=== PATIENT | male | born 1950 | race Caucasian/White ===

== ENCOUNTER → 2016-08-31 | Outpatient (CLI) | payer OTHER ==
[2015-11-03 14:10] VITALS: BP 121/69
[~2016-08-31] MED LIST: ARIP2TAB PO; ASPI-482 PO; BUPR100T6 PO; GABA-585 PO; HYDR-2762 PO; LAMO25TA PO; LITH300C PO; OMEG500C PO; PROM25TA10 PO; TAMS0.4C97 PO
== END | disposition home or self-care (01) ==
LOC: SPEC 10:00
PROVIDERS: ATTEND Internal Medicine
DX: R31.9 Hematuria, unspecified (principal); N40.1 Benign prostatic hyperplasia with lower urinary tract symptoms
CPT/HCPCS: 88112

== ENCOUNTER → 2016-09-08 | Outpatient (CLI) | payer OTHER ==
[2015-11-03 14:10] VITALS: BP 121/69
== END | disposition home or self-care (01) ==
LOC: SPEC 15:33
PROVIDERS: ATTEND Internal Medicine
DX: R31.9 Hematuria, unspecified (principal); N40.1 Benign prostatic hyperplasia with lower urinary tract symptoms
CPT/HCPCS: 88112

== ENCOUNTER → 2016-09-28 | Outpatient (CLI) | payer OTHER ==
[2015-11-03 14:10] VITALS: BP 121/69
--- NOTE | 2016-10-07 15:29 | PATHOLOGY ---
CYTOPATHOLOGY REPORT CLINICAL HISTORY: Hematuria. SPECIMEN(S) RECEIVED: A.Urine, NOS FINAL DIAGNOSIS: Urine, NOS: - POSITIVE FOR MALIGNANCY. SEE COMMENT. COMMENT: There are highly atypical cells identified within a background of red blood cells. FISH analysis is performed. Aneuploidy involving at least two of the following chromosomes: 3, 7, 17 (cen3, cen7, cen17) is observed (79 cells positive, 84.0%). This finding is associated with development and progression of urothelial carcinoma and generally correlates with high-grade tumor (see FISH Analysis report [id number]). The case is also examined by Dr. Jovanna Gibson, who concurs with the diagnosis. (JPM:; d/t: 10/07/16) PATHOLOGIST: Prieto Nicole M.D. REPORT ELECTRONICALLY SIGNED BY: Prieto Nicole M.D. DATE/TIME: 10/07/2016 15:28 GROSS PATHOLOGY: A. Urine, NOS: The specimen is submitted unfixed, labeled "Prashant Stevenson". Received by the Cytology Department is 30 mL of clear yellow fluid. One ThinPrep slide was prepared. Specimen sent for FISH by Amanda at [facility] (clt 3) LICENSED MORTICIAN(S): VENUS Walters(ASCP) INITIAL CPT CODE(S): A; 57452 Professional services performed by [facility] at [address] [address] Technical services performed by [facility] at [address] [place] [address], [address], [place] [address]. Dr. Lucero Black PATIENT: PRASHANT STEVENSON /AGE: 8 1950 (Age: 66) SEX: M PATIENT #: [id number] ALT CASE #: SPECIMEN COLLECTION DATE: 09/27/2016 SPECIMEN RECEIVED DATE: 09/30/[address] [facility] [address] [place] [address], [address] [place] [address] PHONE: [phone] DIRECTOR: Ken Frankel M.D. * * * END OF REPORT * * *
== END | disposition home or self-care (01) ==
LOC: SPEC 15:37
PROVIDERS: ATTEND Family Medicine
DX: R31.9 Hematuria, unspecified (principal)
CPT/HCPCS: 88112

== ENCOUNTER 2017-07-26 16:09 | Emergency (ER) | payer OTHER ==
[2017-07-26] MEDS: ACETAMINOPHEN 500 MG TABLET PO (17:58)
== END 2017-07-26 18:00 | disposition home or self-care (01) ==
LOC: ER 16:09
DX: S16.1XXA Strain of muscle, fascia and tendon at neck level, initial encounter (principal); S00.81XA Abrasion of other part of head, initial encounter; S80.212A Abrasion, left knee, initial encounter; F32.9 Major depressive disorder, single episode, unspecified; Z90.49 Acquired absence of other specified parts of digestive tract; W22.8XXA Striking against or struck by other objects, initial encounter; Y93.01 Activity, walking, marching and hiking; Y92.481 Parking lot as the place of occurrence of the external cause; Y99.8 Other external cause status
CPT/HCPCS: 99283

== ENCOUNTER → 2017-12-11 | Outpatient (CLI) | payer OTHER, MEDICARE ==
[2017-12-11 09:49] LABS: ADD MAN DIFF? NO
[2017-12-11 09:58] LABS: BASO # 0.1 x10^3/uL (0.0-0.2); BASO % 1 % (0-3); EOS # 0.3 x10^3/uL (0.0-0.7); EOS % 3 % (0-3); HEMATOCRIT 46.8 % (39.0-53.0); HEMOGLOBIN 15.8 g/dL (13.0-17.5); LYMPH # 2.1 x10^3/uL (1.0-4.8); LYMPH % 25 % (24-48); MEAN CORPUSCULAR HEMOGLOBIN 29 pg (25-35); MEAN CORPUSCULAR HGB CONC 34 g/dL (31-37); MEAN CORPUSCULAR VOLUME 86 fL (79-100); MONO # 0.7 x10^3/uL (0.0-1.1); MONO % 8 % (0-9); NEUT # 5.5 x10^3uL (1.8-7.7); NEUT % 63 % (31-73); PLATELET COUNT 265 x10^3/uL (140-400); RED BLOOD COUNT 5.45 x10^6/uL (4.30-5.70); RED CELL DISTRIBUTION WIDTH 14.6 % (11.5-14.5); WHITE BLOOD COUNT 8.7 x10^3/uL (4.0-11.0)
[2017-12-11 10:20] LABS: ALBUMIN 3.9 g/dL (3.4-5.0); ALBUMIN/GLOBULIN RATIO 1.1 (1.0-1.7); ALK PHOS 96 U/L (46-116); ALT (SGPT) 32 U/L (16-63); ANION GAP 7 (6-14); AST (SGOT) 15 U/L (15-37); BLOOD UREA NITROGEN 16 mg/dL (8-26); BUN/CREATININE RATIO 11 (6-20); CALCIUM 9.3 mg/dL (8.5-10.1); CARBON DIOXIDE 30 mmol/L (21-32); CHLORIDE 103 mmol/L (98-107); CHOLESTEROL 196 mg/dL (0-200); CREATININE 1.4 mg/dL (0.7-1.3); GFR 50.9; GLUCOSE 107 mg/dL (70-99); HDLC 45 mg/dL (40-60); LDLC 111 mg/dL (0-100); NON-HDL CHOLESTEROL 151 mg/dL (0-129); POTASSIUM 4.7 mmol/L (3.5-5.1); SODIUM 140 mmol/L (136-145); TOTAL BILIRUBIN 0.5 mg/dL (0.2-1.0); TOTAL PROTEIN 7.4 g/dL (6.4-8.2); TRIGLYCERIDES 200 mg/dL (0-150); VLDLC 40 mg/dL (0-40)
[2017-12-11 10:26] LABS: CHOLESTEROL/HDL RATIO 4.4
[2017-12-11 10:28] LABS: THYROID STIM HORMONE (TSH) 1.163 uIU/mL (0.358-3.74)
[2017-12-11 10:44] LABS: PROSTATE SPECIFIC ANTIGEN 1.79 ng/mL (0.00-4.00)
[2017-12-12 03:14] LABS: HEMOGLOBIN A1C 5.5 % (4.8-5.6)
== END | disposition home or self-care (01) ==
LOC: LAB 09:18
DX: Z12.5 Encounter for screening for malignant neoplasm of prostate (principal); N40.0 Benign prostatic hyperplasia without lower urinary tract symptoms; R79.89 Other specified abnormal findings of blood chemistry
CPT/HCPCS: 36415; 80053; 80061; 83036; 84443; 85025; G0103

== ENCOUNTER → 2018-04-03 | Outpatient (CLI) | payer MEDICARE, OTHER ==
[2017-07-26 17:20] VITALS: BP 154/70
[~2018-04-03] MED LIST changes: -ARIP2TAB PO; +ARIP2TAB3 PO; +CARI350T PO
[2018-04-03 08:06] LABS: CHOLESTEROL/HDL RATIO 3.7
[2018-04-03 16:31] LABS: ALBUMIN 3.7 g/dL (3.4-5.0); ALBUMIN/GLOBULIN RATIO 1.2 (1.0-1.7); CALCIUM 8.6 mg/dL (8.5-10.1); CREATININE 1.6 mg/dL (0.7-1.3); GFR 43.5; POTASSIUM 3.9 mmol/L (3.5-5.1); TOTAL BILIRUBIN 0.3 mg/dL (0.2-1.0); TOTAL PROTEIN 6.7 g/dL (6.4-8.2)
[2018-04-06 10:29] LABS: METHYLMALONIC ACID 187 nmol/L (0-378)
== END | disposition home or self-care (01) ==
LOC: LAB 07:22
PROVIDERS: ATTEND Internal Medicine
DX: E78.5 Hyperlipidemia, unspecified (principal); G31.84 Mild cognitive impairment of uncertain or unknown etiology; E11.9 Type 2 diabetes mellitus without complications; E78.00 Pure hypercholesterolemia, unspecified; Z87.891 Personal history of nicotine dependence; Z90.49 Acquired absence of other specified parts of digestive tract
CPT/HCPCS: 36415; 80053; 80061; 82550; 82607

== ENCOUNTER → 2019-03-28 | Outpatient (CLI) | payer OTHER ==
[2017-07-26 17:20] VITALS: BP 154/70
[~2019-03-28] MED LIST changes: -HYDR-2762 PO; +HYDR-2765 PO; -LAMO25TA PO; +LAMO25TA9 PO; +REGADENOSON 0.4 MG/5 ML DISP.SYRIN. IV ONE
--- NOTE | 2019-03-28 09:19 | CARD ---
MR#: [id number] Date of Study: 03/28/2019 Ordering Physician: JORDI ARAIZA, Referring Physician: JORDI ARAIZA Tech: Rosalva Mackey RDCS APPROVED REPORT EXAM: Two-dimensional and M-mode echocardiogram with Doppler and color Doppler. Other Information Quality : Good INDICATION Chest Pain 2D DIMENSIONS RVDd2.8 (2.9-3.5cm)Left Atrium(2D)3.2 (1.6-4.0cm) IVSd1.0 (0.7-1.1cm)Aortic Root(2D)2.7 (2.0-3.7cm) LVDd4.6 (3.9-5.9cm)LVOT Diameter2.1 (1.8-2.4cm) PWd0.8 (0.7-1.1cm)LVDs3.3 (2.5-4.0cm) FS (%) 29.0 %SV54.5 ml LVEF(%)55.8 (>50%) Aortic Valve AoV Peak Darvin.97.2cm/sAoV VTI17.1cm AO Peak GR.3.8mmHgLVOT Peak Darvin.98.9cm/s AO Mean GR.2mmHgAVA (VMAX)3.50cm2 COURTNEY (VTI)3.90cm2 Mitral Valve MV E Ijgarivq70.8cm/sMV DECEL YWOP349id MV A Deaczgbi60.7cm/sE/A Ratio0.9 Pulmonary Vein S1 Qkscbgrf45.5cm/sD2 Ayhmmwlu33.2cm/s LEFT VENTRICLE The left ventricle is normal size. There is normal left ventricular wall thickness. The left ventricu lar systolic function is normal and the ejection fraction is within normal range. The Ejection Fracti on is 55-60%. There is normal LV segmental wall motion. Transmitral Doppler flow pattern is Grade I-a bnormal relaxation pattern. RIGHT VENTRICLE The right ventricle is normal size. The right ventricular systolic function is normal. ATRIA The left atrium size is normal. The right atrium size is normal. The interatrial septum is intact wit h no evidence for an atrial septal defect or patent foramen ovale as noted on 2-D or Doppler imaging. AORTIC VALVE The aortic valve is calcified but opens well. Doppler and Color Flow revealed no significant aortic r egurgitation. There is no significant aortic valvular stenosis. MITRAL VALVE The mitral valve is calcified but opens well. Mitral annular calcification is mild. There is no evide nce of mitral valve prolapse. There is no mitral valve stenosis. Doppler and Color Flow revealed no m itral valve regurgitation noted. TRICUSPID VALVE The tricuspid valve is normal in structure and function. Doppler and Color Flow revealed no tricuspid valve regurgitation noted. There is no tricuspid valve stenosis. PULMONIC VALVE Doppler and Color Flow revealed trace to mild pulmonic valvular regurgitation. There is no pulmonic v alvular stenosis. GREAT VESSELS The aortic root is normal in size. The ascending aorta is normal in size. The IVC is normal in size a nd collapses >50% with inspiration. PERICARDIAL EFFUSION There is no evidence of significant pericardial effusion. Critical Notification Critical Value: No <Conclusion> The left ventricular systolic function is normal and the ejection fraction is within normal range. Th e Ejection Fraction is 55-60%. There is normal LV segmental wall motion. Signed by : Tong Sanches, Electronically Approved : 03/28/2019 09:19:09
--- NOTE | 2019-03-28 11:32 | RAD ---
MR#: [id number] Date of Study: 03/28/2019 Ordering Physician: JORDI ARAIZA Referring Physician: BRADFORD MCGRATH Tech: RT Giovanni Larson) (N) APPROVED REPORT Test Type: Pharmacological Stress Nurse/Tech: Rip SIMON Test Indications: Chest Pain, Near Syncope Cardiac History: See EMR Medications: ASA, See EMR Medical History: Smoker=Quit 2 months ago, See EMR Resting ECG: SR Resting Heart Rate: 69 bpm Resting Blood Pressure: 125/68mmHg Pretest Chest Pain: No chest pain Nurse/Tech Notes Lungs CTA, Heart tones regular. Consent: The procedure was explained to the patient in lay terms. Informed consent was witnessed. Toney eout was entered into [facility]. History and Stress Test performed by RT Giovanni Larson) (N) Pharm. Details Pharmacologic stress testing was performed using 0.4mg per 5ml of regadenoson given intravenously ove r 7-10 seconds. Stress Symptoms No chest pain or symptoms. POST EXERCISE Reason for Termination: Infusion complete Max HR: 97 bpm Max Blood Pressure: 134/54mmHg Blood Pressure response to exercise: Normal blood pressure response during stress. Heart Rate response to exercise: WNL Chest Pain: No. Arrhythmia: No. ST Change: No. INTERPRETATION Stress EKG Conclusion: No evidence of stress induced EKG changes. Imaging Protocol IMAGE PROTOCOL: Rest Tc-99m/stress Tc-99m 1 day Rest: Stress: Viability: Radiopharm.Tc99m TcbkbntcuUg84f Sestamibi Zspw66hRj 32mCi Duration 15min. 10min. Img Date 03/28/2019 03/28/2019 Inj-Img Bcuk19rxj. 60min. Rest Admin Site:IV - Right AntecubitalAdministrator:RT Giovanni Larson)(N) Stress Admin Site: IV - Right AntecubitalAdministrator: RT Giovanni Larson)(N) STRESS DATA End Diast. Vol.95.0mlAv. Heart Rate71.0bpm End Syst. Vol.29.0mlCO Index BSA4.7L/min Myocardial Asph994.0gEject. Fyxhxtyb39.0% Stress Rates Pk. Fill Rate2.82EDV/secLVtime Pk. Fill 259.39msec Pk. Empty Rate4.12ESV/secLVtime Pk. Ztqyh238.77msec 08/02 Pk. Fill1.29EDV/sec Stress Scores Regional WT0.00Summed WT0.00 Regional WM0.00Summed WM0.00 The rest and stress images show normal perfusion, normal contraction and thickening. LV Perf. Quant 17 Seg. SSS0.00 17 Seg. SRS0.00 17 Seg. SDS0.00 Stress Defect Extent (% LAD)0.00Rest Defect Extent (% LAD)0.00Rev. Defect Extent (% LAD)0.00 Stress Defect Extent (% LCX) 0.00Rest Defect Extent (% LCX)0.00Rev. Defect Extent (% LCX)0.00 Stress Defect Extent (% RCA)0.00Rest Defect Extent (% RCA)0.00Rev. Defect Extent (% RCA)0.00 Stress Defect Extent (% SIDNEY)0.00Rest Defect Extent (% SIDNEY)0.00Rev. Defect Extent (% SIDNEY)0.00 Other Information Quality:Good Risk Assessment: Low Risk Conclusion 1. No evidence of EKG changes with stress testing. 2. Normal perfusion at stress/rest. 3. Low risk study. 4. EF > 60%. Signed by : Tong Sanches, Electronically Approved : 03/28/2019 11:31:45
== END | disposition home or self-care (01) ==
LOC: NM 07:35
PROVIDERS: ATTEND Internal Medicine Cardiovascular Disease
DX: I08.8 Other rheumatic multiple valve diseases (principal); R07.9 Chest pain, unspecified; R55 Syncope and collapse; Z87.891 Personal history of nicotine dependence
CPT/HCPCS: 78452; 93017; 93306; A9500; J2785

== ENCOUNTER → 2019-04-05 | Outpatient (CLI) | payer OTHER, MEDICARE ==
[2017-07-26 17:20] VITALS: BP 154/70
[~2019-04-05] MED LIST changes: -REGADENOSON 0.4 MG/5 ML DISP.SYRIN. IV ONE
[2019-04-05 09:20] LABS: BASO # 0.1 x10^3/uL (0.0-0.2); BASO % 1 % (0-3); EOS # 0.2 x10^3/uL (0.0-0.7); EOS % 3 % (0-3); HEMATOCRIT 41.2 % (39.0-53.0); LYMPH # 1.7 x10^3/uL (1.0-4.8); LYMPH % 26 % (24-48); MEAN CORPUSCULAR HEMOGLOBIN 29 pg (25-35); MEAN CORPUSCULAR HGB CONC 34 g/dL (31-37); MEAN CORPUSCULAR VOLUME 85 fL (79-100); MONO # 0.5 x10^3/uL (0.0-1.1); MONO % 7 % (0-9); NEUT # 4.1 x10^3/uL (1.8-7.7); NEUT % 63 % (31-73); PLATELET COUNT 259 x10^3/uL (140-400); RED BLOOD COUNT 4.83 x10^6/uL (4.30-5.70); RED CELL DISTRIBUTION WIDTH 15.1 % (11.5-14.5); WHITE BLOOD COUNT 6.5 x10^3/uL (4.0-11.0)
[2019-04-05 09:21] LABS: BILIRUBIN,URINE NEGATIVE (NEG); CLARITY,URINE CLEAR; COLOR,URINE YELLOW; NITRITE,URINE NEGATIVE (NEG); PH,URINE 5.5; PROTEIN,URINE NEGATIVE (NEG-TRACE); UROBILINOGEN,URINE 0.2 mg/dL (0.2 mg/dL)
[2019-04-05 09:34] LABS: BACTERIA,URINE 0 /HPF (0-FEW)
[2019-04-05 10:22] LABS: ALBUMIN 3.6 g/dL (3.4-5.0); CALCIUM 8.8 mg/dL (8.5-10.1); CREATININE 1.3 mg/dL (0.7-1.3); DIRECT BILIRUBIN 0.1 mg/dL (0.0-0.2); GFR 55.1; POTASSIUM 3.9 mmol/L (3.5-5.1); TOTAL BILIRUBIN 0.3 mg/dL (0.2-1.0)
[2019-04-05 10:26] LABS: CHOLESTEROL/HDL RATIO 3.5
[2019-04-05 17:14] LABS: THYROXINE 5.7 ug/dL (4.5-12.0)
[2019-04-06 01:11] LABS: HEMOGLOBIN A1C 5.8 % (4.8-5.6)
== END | disposition home or self-care (01) ==
LOC: LAB 08:19
PROVIDERS: ATTEND Psychiatry & Neurology Psychiatry
DX: F33.0 Major depressive disorder, recurrent, mild (principal); F41.9 Anxiety disorder, unspecified; F43.12 Post-traumatic stress disorder, chronic; E11.9 Type 2 diabetes mellitus without complications; E78.00 Pure hypercholesterolemia, unspecified; E78.5 Hyperlipidemia, unspecified; Z90.49 Acquired absence of other specified parts of digestive tract; Z79.899 Other long term (current) drug therapy
CPT/HCPCS: 36415; 80048; 80061; 80076; 81001; 82306; 83036; 84436; 84443; 84480; 85025; G0103

== ENCOUNTER → 2019-05-15 | Outpatient (CLI) | payer OTHER, MEDICARE ==
[2017-07-26 17:20] VITALS: BP 154/70
--- NOTE | 2019-05-15 17:00 | RAD ---
Examination: CT CHEST WO CONTRAST History: Lung cancer screening Comparison/Correlation: None Findings: Axial images of chest were obtained without contrast. Sagittal and coronal reformatted images were provided. The exam was performed according to low-dose lung cancer screening CT protocol. The tracheobronchial tree is unremarkable. No pulmonary nodule or mass. No infiltrate or pleural effusion. No pneumothorax. Bony structures are unremarkable. Old left clavicular fracture is noted. Impression: Lung rads- Category 1-negative. Continue annual screening evaluation. PQRS Compliance Statement: One or more of the following individualized dose reduction techniques were utilized for this examination: 1. Automated exposure control 2. Adjustment of the mA and/or kV according to patient size 3. Use of iterative reconstruction technique Electronically signed by: Perez Fernandes MD (05/15/2019 4:57 PM) [facility]
== END | disposition home or self-care (01) ==
LOC: CT 09:21
PROVIDERS: ATTEND Internal Medicine
DX: Z12.2 Encounter for screening for malignant neoplasm of respiratory organs (principal)
CPT/HCPCS: 71250

== ENCOUNTER 2020-08-15 16:06 | Inpatient (IN) | payer BC, MEDICARE, OTHER ==
[~2020-08-15] VITALS: Ht 175.3 cm; Wt 110.7 kg
[~2020-08-15 16:06] MED LIST changes: +MORPHINE SULFATE 4 MG/ML VIAL. IV PRN
[2020-08-15] MEDS ORDERED: LIDO:MAALOX 1:1 20 ML SINGLE DOSE. SWSW ONE (17:00)
[2020-08-15] MEDS ORDERED: FAMOTIDINE 20 MG/2 ML VIAL IVP ONE (17:00)
[2020-08-15] MEDS ORDERED: ONDANSETRON PF 4 MG/2 ML VIAL. IVP ONE (17:00)
[2020-08-15] MEDS ORDERED: IV NORMAL SALINE 1000ML BAG 1,000 ML IV ONE ×2 (17:00→19:15)
[2020-08-15] MEDS: fentaNYL PF VIAL 100 MCG/2 ML VIAL IV PRN ×4 (17:05→20:15)
[2020-08-15 17:31] LABS: BASO # 0.1 x10^3/uL (0.0-0.2); BASO % 1 % (0-3); EOS # 0.1 x10^3/uL (0.0-0.7); EOS % 0 % (0-3); HEMATOCRIT 42.6 % (39.0-53.0); HEMOGLOBIN 14.1 g/dL (13.0-17.5); LYMPH # 1.2 x10^3/uL (1.0-4.8); LYMPH % 9 % (24-48); MEAN CORPUSCULAR HEMOGLOBIN 28 pg (25-35); MEAN CORPUSCULAR HGB CONC 33 g/dL (31-37); MEAN CORPUSCULAR VOLUME 85 fL (79-100); MONO # 1.1 x10^3/uL (0.0-1.1); MONO % 9 % (0-9); NEUT # 10.3 x10^3/uL (1.8-7.7); NEUT % 81 % (31-73); PLATELET COUNT 273 x10^3/uL (140-400); RED BLOOD COUNT 5.03 x10^6/uL (4.30-5.70); RED CELL DISTRIBUTION WIDTH 14.1 % (11.5-14.5); WHITE BLOOD COUNT 12.7 x10^3/uL (4.0-11.0)
[2020-08-15] MEDS: NITROGLYCERIN SUBLINGUAL 0.4 MG BOTTLE OF 25. SL PRN ×3 (17:31→17:48)
[2020-08-15 17:40] LABS: CALCIUM 9.1 mg/dL (8.5-10.1); CREATININE 1.3 mg/dL (0.7-1.3); GFR 54.9; POTASSIUM 4.1 mmol/L (3.5-5.1)
[2020-08-15 17:45] LABS: ALBUMIN 3.5 g/dL (3.4-5.0); ALBUMIN/GLOBULIN RATIO 0.9 (1.0-1.7); MAGNESIUM 2.1 mg/dL (1.8-2.4); TOTAL BILIRUBIN 0.5 mg/dL (0.2-1.0); TOTAL PROTEIN 7.3 g/dL (6.4-8.2)
[2020-08-15] MEDS ORDERED: CONTRAST GIVEN. MC PRN (17:45)
[2020-08-15] MEDS ORDERED: IOHEXOL 300 MG/ML 100ML VIAL. IV ONE (17:45)
--- NOTE | 2020-08-15 17:57 | EKG ---
[facility] [address] [place] [address] Test Date: 2020-08-15 Test Time: 16:56:30 Pat Name: PRASHANT QUIROS Department: Room: Gender: M Rn Infusion: : 1950 Requested By: DAYNE PORRAS Order Number: [id number] Reading MD: Measurements Intervals [place] Rate: 74 P: SC: QRS: 73 QRSD: 96 T: 0 QT: 378 QTc: 425 Interpretive Statements IRREGULAR RHYTHM, NO P-WAVE FOUND NO SPECIFIC ECG ABNORMALITIES RI6.01 No previous ECG available for comparison
--- NOTE | 2020-08-15 18:28 | RAD ---
EXAM: CT Abdomen and Pelvis with IV contrast INDICATION: Reason: epigastric pain / Spl. Instructions: Omni 300 60ml / History: TECHNIQUE: Multi-detector row CT images were acquired from the lung bases through the abdomen and pel vis with the use of IV contrast. Sagittal and coronal images were acquired from the transaxial data. All CT scans performed at this facility utilize dose optimization techniques as appropriate to the ex am, including the following: Automated exposure control and adjustment of the mA and/or KV according to patient size (this includes techniques or standardized protocols for targeted exams where dose is indication/reason for exam). IV CONTRAST: Administered ORAL CONTRAST: None COMPARISON: 06/21/[address] with and without IV contrast FINDINGS: LOWER CHEST: Unremarkable LIVER: Unremarkable BILIARY SYSTEM: Gallbladder is distended, shows borderline wall thickening and contains intraluminal gas at the fundus, all of which represent a change from the previous exam.. Bile ducts are not dilate d. PANCREAS: Unremarkable SPLEEN: Unremarkable ADRENALS: Unremarkable KIDNEYS & URETERS: Unremarkable BLADDER: Unremarkable REPRODUCTIVE ORGANS: Unremarkable GASTROINTESTINAL: A cluster small bowel loops in the left mid abdomen are fluid-filled and shows some fecal lies content (image 57 series 2). This is a nonspecific appearance but could potentially refle ct partial small bowel obstruction. There are extensive colonic diverticuli. No findings for acute di verticulitis. The appendix is not well seen but there are no findings suggestive of acute appendiciti s. MESENTERY/PERITONEUM/RETROPERITONEUM: Unremarkable VASCULAR: Unremarkable LYMPH NODES: No adenopathy OSSEOUS & SOFT TISSUES: Unremarkable IMPRESSION: 1. Distended gallbladder with borderline wall thickening and intraluminal gas. Correlate for any cli nical evidence of acute cholecystitis. Consider right upper quadrant abdominal ultrasound if clinical ly warranted. 2. Mildly distended loops of small bowel, some which are fecalized, are nonspecific but cluster in a pattern suggesting a possible early small bowel obstruction. Correlate clinically and consider seria l imaging. No evidence of bowel perforation. Electronically signed by: Ava Araujo MD (08/15/2020 6:26 PM) [facility] [place]
--- NOTE | 2020-08-15 19:03 | PHYS DOC ---
Past Medical History Past Medical History: Depression, High Cholesterol, Other Additional Past Medical Histor: KIDNEY PROBLEMS, PROSTATE, ESOPHAGEAL STRICTURES (DAYNE PORRAS APRN) Past Surgical History: Appendectomy, Tonsillectomy Additional Past Surgical Histo: ADNOIDS, ESOPHAGEAL DILATION (DAYNE PORRAS APRN) Smoking Status: Current Every Day Smoker Alcohol Use: Occasionally Drug Use: None (DAYNE PORRAS APRN) General Adult EDM: Chief Complaint: ABDOMINAL PAIN HPI: HPI: Patient is a 70 year old male with history of high cholesterol, depression, appendectomy, who presents to the ED today complaining of 10 out of 10 sharp epigastric abdominal pain with nausea no vomiting, symptoms began last night. Patient denies any exacerbating or relieving factors. Denies any diarrhea. He states he had a normal bowel movement today. Denies any fever. (DAYNE PORRAS APRN) Review of Systems: Review of Systems: Constitutional: Denies fever or chills. [] Eyes: Denies change in visual acuity. [] HENT: Denies nasal congestion or sore throat. [] Respiratory: Denies cough or shortness of breath. [] Cardiovascular: Denies chest pain or edema. [] GI: Reports epigastric abdominal pain with nausea, denies vomiting, bloody stools or diarrhea. [] : Denies dysuria. [] Musculoskeletal: Denies back pain or joint pain. [] Integument: Denies rash. [] Neurologic: Denies headache, focal weakness or sensory changes. [] Psychiatric: Denies depression or anxiety. [] (DAYNE PORRAS APRN) Heart Score: Risk Factors: Risk Factors: DM, Current or recent (<one month) smoker, HTN, HLP, family history of CAD, obesity. Risk Scores: Score 0 - 3: 2.5% MACE over next 6 weeks - Discharge Home Score 4 - 6: 20.3% MACE over next 6 weeks - Admit for Clinical Observation Score 7 - 10: 72.7% MACE over next 6 weeks - Early Invasive Strategies (DAYNE PORRAS APRN) Current Medications: Current Medications Medications (Trade) Dose Ordered Sig/Malia Start Time Stop Time Status Last Admin Dose Admin Famotidine (Pepcid Vial) 20 mg 1X ONCE 08/15/20 17:00 08/15/20 17:01 DC 08/15/20 17:11 20 MG Fentanyl Citrate (Fentanyl 2ml Vial) 50 mcg PRN Q15MIN PRN 08/15/20 17:00 08/16/20 16:59 08/15/20 17:30 50 MCG Info (CONTRAST GIVEN -- Rx MONITORING) 1 each PRN DAILY PRN 08/15/20 17:45 08/17/20 17:44 Iohexol (Omnipaque 300 Mg/ml) 60 ml 1X ONCE 08/15/20 17:45 08/15/20 17:46 DC 08/15/20 18:03 60 ML Multi-Ingredient Mouthwash/Gargle (Gi Cocktail) 20 ml 1X ONCE 08/15/20 17:00 08/15/20 17:01 DC 08/15/20 17:05 20 ML Nitroglycerin (Nitrostat) 0.4 mg PRN Q5MIN PRN 08/15/20 17:30 08/15/20 17:48 0.4 MG Ondansetron HCl (Zofran) 4 mg 1X ONCE 08/15/20 17:00 08/15/20 17:01 DC 08/15/20 17:04 4 MG Sodium Chloride 1,000 ml @ 1,000 mls/hr 1X ONCE 08/15/20 17:00 08/15/20 17:59 DC 08/15/20 17:04 1,000 MLS/HR (MUTUNGA,DAYNE MANAGER LINE) Allergies: Allergies: Allergies Coded Allergies Type Severity Reaction Last Updated Verified No Known Drug Allergies 11/03/15 No (MUTUNGA,DAYNE MANAGER LINE) Physical Exam: PE: Constitutional: Patient is restless. Appears uncomfortable. Well developed, well nourished, no acute distress, non-toxic appearance. [] HENT: Normocephalic, atraumatic, bilateral external ears normal, oropharynx moist, no oral exudates, nose normal. [] Eyes: PERRLA, EOMI, conjunctiva normal, no discharge. [] Neck: Normal range of motion, no tenderness, supple, no stridor. [] Cardiovascular:Heart rate regular rhythm, no murmur [] Lungs & Thorax: Bilateral breath sounds clear to auscultation [] Abdomen: Rounded abdomen, appears distended the patient states this is normal for him. Bowel sounds normal, mild epigastric tenderness, mild right upper quadrant tenderness, no right lower quadrant tenderness no masses, no pulsatile masses. [] Skin: Warm, dry, no erythema, no rash. [] Back: No tenderness, no CVA tenderness. [] Extremities: No tenderness, no cyanosis, no clubbing, ROM intact, no edema. [] Neurologic: Alert and oriented X 3, normal motor function, normal sensory function, no focal deficits noted. [] Psychologic: Affect normal, judgement normal, mood normal. [] (DAYNE PORRAS APRN) Current Patient Data: Labs: Laboratory Tests Test 08/15/20 17:15 White Blood Count 12.7 x10^3/uL (4.0-11.0) H Red Blood Count 5.03 x10^6/uL (4.30-5.70) Hemoglobin 14.1 g/dL (13.0-17.5) Hematocrit 42.6 % (39.0-53.0) Mean Corpuscular Volume 85 fL (79-100) Mean Corpuscular Hemoglobin 28 pg (25-35) Mean Corpuscular Hemoglobin Concent 33 g/dL (31-37) Red Cell Distribution Width 14.1 % (11.5-14.5) Platelet Count 273 x10^3/uL (140-400) Neutrophils (%) (Auto) 81 % (31-73) H Lymphocytes (%) (Auto) 9 % (24-48) L Monocytes (%) (Auto) 9 % (0-9) Eosinophils (%) (Auto) 0 % (0-3) Basophils (%) (Auto) 1 % (0-3) Neutrophils # (Auto) 10.3 x10^3/uL (1.8-7.7) H Lymphocytes # (Auto) 1.2 x10^3/uL (1.0-4.8) Monocytes # (Auto) 1.1 x10^3/uL (0.0-1.1) Eosinophils # (Auto) 0.1 x10^3/uL (0.0-0.7) Basophils # (Auto) 0.1 x10^3/uL (0.0-0.2) Sodium Level 138 mmol/L (136-145) Potassium Level 4.1 mmol/L (3.5-5.1) Chloride Level 102 mmol/L (98-107) Carbon Dioxide Level 27 mmol/L (21-32) Anion Gap 9 (6-14) Blood Urea Nitrogen 15 mg/dL (8-26) Creatinine 1.3 mg/dL (0.7-1.3) Estimated GFR (Cockcroft-Gault) 54.9 BUN/Creatinine Ratio 12 (6-20) Glucose Level 130 mg/dL (70-99) H Calcium Level 9.1 mg/dL (8.5-10.1) Magnesium Level 2.1 mg/dL (1.8-2.4) Total Bilirubin 0.5 mg/dL (0.2-1.0) Aspartate Amino Transferase (AST) 28 U/L (15-37) Alanine Aminotransferase (ALT) 42 U/L (16-63) Alkaline Phosphatase 73 U/L (46-116) Troponin I Quantitative < 0.017 ng/mL (0.000-0.055) IG-Rnq-F-Type Natriuretic Peptide 50 pg/mL (0-124) Total Protein 7.3 g/dL (6.4-8.2) Albumin 3.5 g/dL (3.4-5.0) Albumin/Globulin Ratio 0.9 (1.0-1.7) L Lipase 43 U/L (73-393) L Ethyl Alcohol Level < 10 mg/dL (0-10) Laboratory Tests 08/15/20 17:15 Laboratory Tests 08/15/20 17:15 Vital Signs: Vital Signs Date Time Temp Pulse Resp B/P (MAP) Pulse Ox O2 Delivery O2 Flow Rate FiO2 08/15/20 17:48 70 155/70 08/15/20 17:30 16 97 Room Air 08/15/20 16:40 98.3 98.3 (DAYNE PORRAS APRN) EKG: EKG: [] (DAYNE PORRAS APRN) Radiology/Procedures: Radiology/Procedures: []PROCEDURE: CT ABD PELV W/ IV CONTRST ONLY EXAM: CT Abdomen and Pelvis with IV contrast INDICATION: Reason: epigastric pain / Spl. Instructions: Omni 300 60ml / History: TECHNIQUE: Multi-detector row CT images were acquired from the lung bases through the abdomen and pelvis with the use of IV contrast. Sagittal and coronal images were acquired from the transaxial data. All CT scans performed at this facility utilize dose optimization techniques as appropriate to the exam, including the following: Automated exposure control and adjustment of the mA and/or KV according to patient size (this includes techniques or standardized protocols for targeted exams where dose is indication/reason for exam). IV CONTRAST: Administered ORAL CONTRAST: None COMPARISON: 06/21/[address] with and without IV contrast FINDINGS: LOWER CHEST: Unremarkable LIVER: Unremarkable BILIARY SYSTEM: Gallbladder is distended, shows borderline wall thickening and contains intraluminal gas at the fundus, all of which represent a change from the previous exam.. Bile ducts are not dilated. PANCREAS: Unremarkable SPLEEN: Unremarkable ADRENALS: Unremarkable KIDNEYS & URETERS: Unremarkable BLADDER: Unremarkable REPRODUCTIVE ORGANS: Unremarkable GASTROINTESTINAL: A cluster small bowel loops in the left mid abdomen are fluid- filled and shows some fecal lies content (image 57 series 2). This is a nonspecific appearance but could potentially reflect partial small bowel obstruction. There are extensive colonic diverticuli. No findings for acute diverticulitis. The appendix is not well seen but there are no findings suggestive of acute appendicitis. MESENTERY/PERITONEUM/RETROPERITONEUM: Unremarkable VASCULAR: Unremarkable LYMPH NODES: No adenopathy OSSEOUS & SOFT TISSUES: Unremarkable IMPRESSION: 1. Distended gallbladder with borderline wall thickening and intraluminal gas. Correlate for any clinical evidence of acute cholecystitis. Consider right upper quadrant abdominal ultrasound if clinically warranted. 2. Mildly distended loops of small bowel, some which are fecalized, are nonspecific but cluster in a pattern suggesting a possible early small bowel obstruction. Correlate clinically and consider serial imaging. No evidence of bowel perforation. Electronically signed by: Isra Araujo MD (08/15/2020 6:26 PM) [facility] [place] DICTATED and SIGNED BY: ISRA ARAUJO MD DATE: 08/15/20 [id number] 0 (DAYNE PORRAS APRN) Course & Med Decision Making: Course & Med Decision Making Pertinent Labs and Imaging studies reviewed. (See chart for details) This is a 70-year-old male patient presented to the ED today complaining of epigastric abdominal pain that began last night. Patient appears very uncomfortable on arrival to the ED. CBC with a WBC of 12.7, CMP with no acute findings. CT of the abdomen and pelvis on was noted for possible cholecystitis, possible small bowel obstruction. Patient not vomiting in the ED, last bowel movement was today. Spoke with Dr. Pedroza who requested to start patient on antibiotics and get him admitted to the hospital Spoke with Dr. Cervantes who accepted patient for admission Patient was started on Zosyn and IV fluids (DAYNE PORRAS APRN) [place] Disclaimer: Bennett Disclaimer: This electronic medical record was generated, in whole or in part, using a voice recognition dictation system. (DAYNE PORRAS APRN) Departure Departure Impression: Primary Impression: Acute cholecystitis Disposition: ADMITTED INPT THIS HOSP Condition: STABLE Referrals: CINTHIA DAY MD (PCP) Attending Signature Attending Signature I have reviewed the PA/INTERPRETER DEAF's note and plan of care. I was available for consultation as needed during the patient's visit in the emergency department. I agree with the clinical impression, plan, and disposition. (WILLARD MORFIN DO) DAYNE PORRAS APRN Aug 15, 2020 19:03 WILLARD MORFIN DO Aug 16, 2020 03:04
[2020-08-15] MEDS ORDERED: PIPERACILLIN/TAZOBACTAM 3.375 GM in IV NORMAL SALINE 50ML 50 ML IV ONE (19:15)
[2020-08-15] MEDS ORDERED: fentaNYL PF VIAL 100 MCG/2 ML VIAL IV PRN (19:15)
[2020-08-15] MEDS ORDERED: ONDANSETRON PF 4 MG/2 ML VIAL. IV PRN (19:15)
[2020-08-15 19:25] LABS: BILIRUBIN,URINE NEGATIVE (NEG); CLARITY,URINE CLEAR; COLOR,URINE YELLOW; NITRITE,URINE NEGATIVE (NEG); PROTEIN,URINE 30 mg/dL (NEG-TRACE); UROBILINOGEN,URINE 0.2 mg/dL (0.2 mg/dL)
[2020-08-15 19:32] LABS: BARBITURATES NEG (NEG); BENZODIAZEPINES NEG (NEG); CANNABINOIDS NEG (NEG); COCAINE NEG (NEG); METHADONE NEG (NEG); OPIATES NEG (NEG); PHENCYCLIDINE NEG (NEG)
[2020-08-15 19:33] LABS: BACTERIA,URINE 0 /HPF (0-FEW); RBC,URINE 0 /HPF (0-2); WBC,URINE 0 /HPF (0-4)
[2020-08-15 19:34] LABS: AMPHETAMINE/METHAMPHETAMINE NEG (NEG)
--- NOTE | 2020-08-15 19:35 | PDOC1 ---
History and Physical Date of Service: DOS: DATE: 08/15/20 TIME: 19:31 Chief Complaint: Chief Complain: ABD pain History of Present Illness: HPI: 70 year old male with history of high cholesterol, depression, appendectomy, who presents to the ED today complaining of 10 out of 10 sharp epigastric abdominal pain with nausea no vomiting, symptoms began last night. Patient denies any exacerbating or relieving factors. Denies any diarrhea. He states he had a normal bowel movement today. Denies any fever. Past Medical/Surgical History: PMH/PSH: Past Medical History: Depression, High Cholesterol, Other KIDNEY PROBLEMS, PROSTATE, ESOPHAGEAL STRICTURES Past Surgical History: Appendectomy, Tonsillectomy, ESOPHAGEAL DILATION Allergies: Allergies: Coded Allergies: No Known Drug Allergies (Unverified , 11/03/15) Family History: Family History: Reviewed with no relevant findings Social History: Social History: Smoking Status: Current Every Day Smoker Alcohol Use: Occasionally Drug Use: None Current Medications: Current Medications Current Medications Multi-Ingredient Mouthwash/Gargle (Gi Cocktail) 20 ml 1X ONCE SWSW Last administered on 08/15/20at 17:05; Start 08/15/20 at 17:00; Stop 08/15/20 at 17:01; Status DC Fentanyl Citrate (Fentanyl 2ml Vial) 50 mcg PRN Q15MIN PRN IV PAIN GREATER THAN 3/10 Last administered on 08/15/20at 19:15; Start 08/15/20 at 17:00; Stop 08/16/20 at 16:59 Ondansetron HCl (Zofran) 4 mg 1X ONCE IVP Last administered on 08/15/20at 17:04; Start 08/15/20 at 17:00; Stop 08/15/20 at 17:01; Status DC Famotidine (Pepcid Vial) 20 mg 1X ONCE IVP Last administered on 08/15/20at 17:11; Start 08/15/20 at 17:00; Stop 08/15/20 at 17:01; Status DC Sodium Chloride 1,000 ml @ 1,000 mls/hr 1X ONCE IV Last administered on 08/15/20at 17:04; Start 08/15/20 at 17:00; Stop 08/15/20 at 17:59; Status DC Nitroglycerin (Nitrostat) 0.4 mg PRN Q5MIN PRN SL CHEST PAIN Last administered on 08/15/20at 17:48; Start 08/15/20 at 17:30 Iohexol (Omnipaque 300 Mg/ml) 60 ml 1X ONCE IV Last administered on 08/15/20at 18:03; Start 08/15/20 at 17:45; Stop 08/15/20 at 17:46; Status DC Info (CONTRAST GIVEN -- Rx MONITORING) 1 each PRN DAILY PRN MC SEE COMMENTS; Start 08/15/20 at 17:45; Stop 08/17/20 at 17:44 Ondansetron HCl (Zofran) 4 mg PRN Q8HRS PRN IV NAUSEA/VOMITING; Start 08/15/20 at 19:15; Stop 08/16/20 at 19:14 Fentanyl Citrate (Fentanyl 2ml Vial) 50 mcg PRN Q1HR PRN IV PAIN; Start 07/31 01/18 at 19:15; Stop 08/16/20 at 19:14 Piperacillin Sod/ Tazobactam Sod 3.375 gm/Sodium Chloride 50 ml @ 100 mls/hr 1X ONCE IV ; Start 08/15/20 at 19:15; Stop 08/15/20 at 19:44 Sodium Chloride 1,000 ml @ 100 mls/hr 1X ONCE IV ; Start 08/15/20 at 19:15; Stop 08/16/20 at 05:14 Active Scripts Active Soma (Carisoprodol) 350 Mg Tablet 1 Tab PO QHS Promethazine Hcl 25 Mg Tablet 1 Tab PO PRN Q6HRS Hydrocodone-Apap 7.5-325 (Hydrocodone Bit/Acetaminophen) 1 Each Tablet 1-2 Tab PO PRN Q6HRS PRN Reported Flomax (Tamsulosin Hcl) 0.4 Mg Cap.er.24h 0.4 Mg PO DAILY Abilify (Aripiprazole) 2 Mg Tablet 2 Mg PO DAILY Aspir 81 (Aspirin) 81 Mg Tablet.dr 1 Tab PO DAILY Fish Oil (Senath-3 Fatty Acids) 500 Mg Capsule.dr 1,000 Mg PO DAILY Wellbutrin (Bupropion Hcl) 100 Mg Tablet 450 Mg PO DAILY Lamotrigine 25 Mg Tablet 50 Mg PO DAILY Aurora Carbonate 300 Mg Capsule 1 Cap PO DAILY Gabapentin 100 Mg Capsule 100 Mg PO BID ROS: Review of Systems Review of System REVIEW OF SYSTEMS: GENERAL: Denies weakness SKIN: No bruising, hair changes or rashes. EYES: No blurred, double or loss of vision. NOSE AND THROAT: No history of nosebleeds, hoarseness or sore throat. HEART: No history of palpitations, chest pain or shortness of breath on exertion. LUNGS: Denies cough, hemoptysis, wheezing or shortness of breath. GASTROINTESTINAL: Denies changes in appetite, nausea, vomiting, diarrhea or constipation. GENITOURINARY: No history of frequency, urgency, hesitancy or nocturia. NEUROLOGIC: Denies history of numbness, tingling, or tremor. PSYCHIATRIC: No history of panic, anxiety or depression. ENDOCRINE: No history of heat or cold intolerance, polyuria or polydipsia. EXTREMITIES: Denies joint pain, pain on walking or stiffness. Physical Exam: Vital Signs: Vital Signs Date Time Temp Pulse Resp B/P (MAP) Pulse Ox O2 Delivery O2 Flow Rate FiO2 08/15/20 17:48 70 155/70 08/15/20 17:30 16 97 Room Air 08/15/20 16:40 98.3 98.3 Physcial Exam: GEN: No apparent distress. Alert and oriented HEENT: Normal cephalic, atraumatic, external auditory canals are patent EYES: Extraocular muscles are intact, pupil are equally round and reactive to light and accommodation MUSCULOSKELETAL: Well developed , well nourished, good range of motion ENDOCRINE: No thyromegaly was palpated LYMPHATICS: No cervical chain or axillary nodes were noted HEMATOPOIETIC: No bruising NECK: Supple, no JVD, no thyromegaly was noted LUNGS: Clear to auscultation in all lung lizarraga without rhonchi or wheezing HEART: RRR, S!, S2 present. Peripheral pulses intact, no obvious murmurs noted ABDOMEN: Soft, nontender. Positive bowel sounds, no organomegaly, normal bowel sounds EXTREMITIES: Without clubbing, cyanosis, or edema. Pedal pulses intact. Negative Homans sign NEUROLOGIC: Normal speech and tone. A&O x 3, moves all extremities, no obvious focal deficits PSYCHIATRIC: Normal affect, normal mood. Stable SKIN: No ulcerations or rashes, good skin turgor, no jaundice VASCULAR: Good capillary refill, neurovascular bundle appears to be intact Labs: Labs: Laboratory Tests Test 08/15/20 17:15 White Blood Count 12.7 x10^3/uL (4.0-11.0) Red Blood Count 5.03 x10^6/uL (4.30-5.70) Hemoglobin 14.1 g/dL (13.0-17.5) Hematocrit 42.6 % (39.0-53.0) Mean Corpuscular Volume 85 fL (79-100) Mean Corpuscular Hemoglobin 28 pg (25-35) Mean Corpuscular Hemoglobin Concent 33 g/dL (31-37) Red Cell Distribution Width 14.1 % (11.5-14.5) Platelet Count 273 x10^3/uL (140-400) Neutrophils (%) (Auto) 81 % (31-73) Lymphocytes (%) (Auto) 9 % (24-48) Monocytes (%) (Auto) 9 % (0-9) Eosinophils (%) (Auto) 0 % (0-3) Basophils (%) (Auto) 1 % (0-3) Neutrophils # (Auto) 10.3 x10^3/uL (1.8-7.7) Lymphocytes # (Auto) 1.2 x10^3/uL (1.0-4.8) Monocytes # (Auto) 1.1 x10^3/uL (0.0-1.1) Eosinophils # (Auto) 0.1 x10^3/uL (0.0-0.7) Basophils # (Auto) 0.1 x10^3/uL (0.0-0.2) Sodium Level 138 mmol/L (136-145) Potassium Level 4.1 mmol/L (3.5-5.1) Chloride Level 102 mmol/L (98-107) Carbon Dioxide Level 27 mmol/L (21-32) Anion Gap 9 (6-14) Blood Urea Nitrogen 15 mg/dL (8-26) Creatinine 1.3 mg/dL (0.7-1.3) Estimated GFR (Cockcroft-Gault) 54.9 BUN/Creatinine Ratio 12 (6-20) Glucose Level 130 mg/dL (70-99) Calcium Level 9.1 mg/dL (8.5-10.1) Magnesium Level 2.1 mg/dL (1.8-2.4) Total Bilirubin 0.5 mg/dL (0.2-1.0) Aspartate Amino Transf (AST/SGOT) 28 U/L (15-37) Alanine Aminotransferase (ALT/SGPT) 42 U/L (16-63) Alkaline Phosphatase 73 U/L (46-116) Troponin I Quantitative < 0.017 ng/mL (0.000-0.055) OQ-Red-V-Type Natriuretic Peptide 50 pg/mL (0-124) Total Protein 7.3 g/dL (6.4-8.2) Albumin 3.5 g/dL (3.4-5.0) Albumin/Globulin Ratio 0.9 (1.0-1.7) Lipase 43 U/L (73-393) Ethyl Alcohol Level < 10 mg/dL (0-10) Laboratory Tests Test 08/15/20 17:15 White Blood Count 12.7 x10^3/uL (4.0-11.0) Red Blood Count 5.03 x10^6/uL (4.30-5.70) Hemoglobin 14.1 g/dL (13.0-17.5) Hematocrit 42.6 % (39.0-53.0) Mean Corpuscular Volume 85 fL (79-100) Mean Corpuscular Hemoglobin 28 pg (25-35) Mean Corpuscular Hemoglobin Concent 33 g/dL (31-37) Red Cell Distribution Width 14.1 % (11.5-14.5) Platelet Count 273 x10^3/uL (140-400) Neutrophils (%) (Auto) 81 % (31-73) Lymphocytes (%) (Auto) 9 % (24-48) Monocytes (%) (Auto) 9 % (0-9) Eosinophils (%) (Auto) 0 % (0-3) Basophils (%) (Auto) 1 % (0-3) Neutrophils # (Auto) 10.3 x10^3/uL (1.8-7.7) Lymphocytes # (Auto) 1.2 x10^3/uL (1.0-4.8) Monocytes # (Auto) 1.1 x10^3/uL (0.0-1.1) Eosinophils # (Auto) 0.1 x10^3/uL (0.0-0.7) Basophils # (Auto) 0.1 x10^3/uL (0.0-0.2) Sodium Level 138 mmol/L (136-145) Potassium Level 4.1 mmol/L (3.5-5.1) Chloride Level 102 mmol/L (98-107) Carbon Dioxide Level 27 mmol/L (21-32) Anion Gap 9 (6-14) Blood Urea Nitrogen 15 mg/dL (8-26) Creatinine 1.3 mg/dL (0.7-1.3) Estimated GFR (Cockcroft-Gault) 54.9 BUN/Creatinine Ratio 12 (6-20) Glucose Level 130 mg/dL (70-99) Calcium Level 9.1 mg/dL (8.5-10.1) Magnesium Level 2.1 mg/dL (1.8-2.4) Total Bilirubin 0.5 mg/dL (0.2-1.0) Aspartate Amino Transf (AST/SGOT) 28 U/L (15-37) Alanine Aminotransferase (ALT/SGPT) 42 U/L (16-63) Alkaline Phosphatase 73 U/L (46-116) Troponin I Quantitative < 0.017 ng/mL (0.000-0.055) [id number] Natriuretic Peptide 50 pg/mL (0-124) Total Protein 7.3 g/dL (6.4-8.2) Albumin 3.5 g/dL (3.4-5.0) Albumin/Globulin Ratio 0.9 (1.0-1.7) Lipase 43 U/L (73-393) Ethyl Alcohol Level < 10 mg/dL (0-10) Images: Images ABD/PELVIS CT IMPRESSION: 1. Distended gallbladder with borderline wall thickening and intraluminal gas. Correlate for any clinical evidence of acute cholecystitis. Consider right upper quadrant abdominal ultrasound if clinically warranted. 2. Mildly distended loops of small bowel, some which are fecalized, are nonspecific but cluster in a pattern suggesting a possible early small bowel obstruction. Correlate clinically and consider serial imaging. No evidence of bowel perforation. Assessment/Plan Assessment/Plan Acute abdominal pain due to possible cholecystitis Reactive leukocytosis Admit to medicine Surgery consult Serial abdominal exams Consider GI consult if dilated CBD and concern for choledocholithiasis IV Dilaudid as needed N.p.o. Lovenox for DVT prophylaxis, hold 12 hours before surgery Protonix GI prophylaxis Full code Discussed with RN and SW Dispo pending surgery evaluation Justifications for Admission Other Justification MELIDA MORSE MD 16, 2021 19:35
[2020-08-15] MEDS ORDERED: SENNOSIDES 8.6 MG TABLET PO PRN (19:45)
[2020-08-15] MEDS ORDERED: ACETAMINOPHEN 325 MG TABLET. PO PRN (19:45)
[2020-08-15] MEDS: IV NORMAL SALINE 1000ML BAG 1,000 ML IV SCH (19:45)
[2020-08-15] MEDS ORDERED: MORPHINE SULFATE 2 MG/ML VIAL. IV PRN (19:45)
[2020-08-15] MEDS ORDERED: DOCUSATE SODIUM 100 MG CAPSULE. PO PRN (19:45)
[2020-08-15] MEDS ORDERED: DEXTROSE 50% 25 GM / 50ML DISP.SYRIN. IV PRN (19:45)
[2020-08-15] MEDS ORDERED: ONDANSETRON PF 4 MG/2 ML VIAL. IVP PRN (19:45)
--- NOTE | 2020-08-15 20:44 | RAD ---
Right upper quadrant abdominal ultrasound. INDICATION: Abdominal pain and distended gallbladder. Question cholecystitis. COMPARISON: CT abdomen and pelvis with IV contrast of earlier the same day FINDINGS: Grayscale ultrasound imaging of the right upper quadrant was performed. Visualized liver shows increased echogenicity compatible with mild fatty infiltration. Gallbladder shows multiple stones and wall thickening up to 6.7 mm. It is tender to the ultrasound pr obe, consistent with a positive sonographic Judd sign. No intrahepatic biliary dilation. The common bile duct is dilated up to 8.6 mm. Right kidney is normal measuring 10.6 x 5.0 x 4.1 cm. The pancreas is poorly visualized. The visualized IVC is unremarkable. IMPRESSION: Sonographic findings consistent with acute cholecystitis. Electronically signed by: Ava Araujo MD (08/15/2020 8:42 PM) [facility] [place]
[2020-08-15 20:45] VITALS: BP 154/60
[2020-08-15] MEDS: ENOXAPARIN 40 MG/0.4 ML SYRINGE. SQ SCH (21:00)
[2020-08-15 23:00] VITALS: BP 127/59
[2020-08-16] VITALS (9 sets, daily range): BP systolic 106–154; BP diastolic 44–77
[2020-08-16] MEDS: PIPERACILLIN/TAZOBACTAM 3.375 GM in IV NORMAL SALINE 50ML 50 ML IV SCH ×5 (01:00→23:42)
[2020-08-16 02:53] LABS: BASO % 0 % (0-3); EOS # 0.1 x10^3/uL (0.0-0.7); EOS % 1 % (0-3); HEMOGLOBIN 12.5 g/dL (13.0-17.5); LYMPH # 1.4 x10^3/uL (1.0-4.8); LYMPH % 14 % (24-48); MEAN CORPUSCULAR HEMOGLOBIN 28 pg (25-35); MEAN CORPUSCULAR HGB CONC 34 g/dL (31-37); MEAN CORPUSCULAR VOLUME 83 fL (79-100); MONO # 1.3 x10^3/uL (0.0-1.1); MONO % 13 % (0-9); NEUT # 7.2 x10^3/uL (1.8-7.7); NEUT % 71 % (31-73); PLATELET COUNT 246 x10^3/uL (140-400); RED BLOOD COUNT 4.44 x10^6/uL (4.30-5.70); RED CELL DISTRIBUTION WIDTH 14.5 % (11.5-14.5); WHITE BLOOD COUNT 10.1 x10^3/uL (4.0-11.0)
[2020-08-16 03:06] LABS: ALBUMIN 2.9 g/dL (3.4-5.0); ALBUMIN/GLOBULIN RATIO 0.9 (1.0-1.7); CALCIUM 8.3 mg/dL (8.5-10.1); CREATININE 1.3 mg/dL (0.7-1.3); GFR 54.9; TOTAL BILIRUBIN 0.5 mg/dL (0.2-1.0); TOTAL PROTEIN 6.1 g/dL (6.4-8.2)
[2020-08-16] MEDS: IV NORMAL SALINE 1000ML BAG 1,000 ML IV SCH ×2 (05:26→15:45)
[2020-08-16 06:21] LABS: MAGNESIUM 2.2 mg/dL (1.8-2.4); PHOSPHORUS 2.9 mg/dL (2.6-4.7)
[2020-08-16] MEDS ORDERED: SEVOFLURANE > 120 MINUTES. IH ONE (08:53)
[2020-08-16] MEDS ORDERED: ONDANSETRON PF 4 MG/2 ML VIAL. ONE (08:53)
[2020-08-16] MEDS ORDERED: fentaNYL PF VIAL 100 MCG/2 ML VIAL ONE ×2 (08:53→12:59)
[2020-08-16] MEDS ORDERED: KETOROLAC 30 MG/ML VIAL. ONE (08:53)
[2020-08-16] MEDS ORDERED: DEXAMETHASONE SOD PHOS 4 MG/ML VIAL ONE (08:53)
[2020-08-16] MEDS ORDERED: PROPOFOL 10 MG/ML (20ML) VIAL. IV ONE (08:53)
[2020-08-16] MEDS ORDERED: ROCURONIUM 50 MG/5 ML VIAL. ONE (08:53)
[2020-08-16] MEDS ORDERED: LIDOCAINE 2% PF 5 ML VIAL. ONE (08:53)
[2020-08-16] MEDS ORDERED: fentaNYL PF VIAL 100 MCG/2 ML VIAL IV PRN ×2 (09:15)
[2020-08-16] MEDS ORDERED: MORPHINE SULFATE 2 MG/ML VIAL. IV PRN (09:15)
[2020-08-16] MEDS ORDERED: ONDANSETRON PF 4 MG/2 ML VIAL. IV PRN (09:15)
[2020-08-16] MEDS ORDERED: PROCHLORPERAZINE 10 MG/2 ML VIAL. IV PRN (09:15)
[2020-08-16] MEDS ORDERED: HYDROmorphone 2 MG/ML VIAL IV PRN (09:15)
[2020-08-16] MEDS ORDERED: IV RINGERS,LACTATED 1000ML 1,000 ML IV SCH (09:15)
--- NOTE | 2020-08-16 09:24 | PDOC2 ---
CONSULT Date of Consult Date of Consult DATE: 08/16/20 TIME: 09:22 History of Present Illness Reason for Visit: The patient is a 70-year-old male presented with abdominal pain. The pain began yesterday and was located primarily in the upper mid abdomen. The pain did not radiate and there was no associated nausea or vomiting. The pain remained severe and persistent prompting him to report to the emergency department. The ER evaluation is consistent with acute cholecystitis. Past Medical History GI: GERD Psych: Depression Renal/: Benign prostatic enlarg. Past Surgical History Past Surgical History: Appendectomy, Other Family History Family History: Cancer, Heart Disease, Osteo Arthiritis, Other Social History Drugs: None Current Problem List Problem List Problems Medical Problems: (1) Acute cholecystitis Status: Acute Current Medications Current Medications Current Medications Multi-Ingredient Mouthwash/Gargle (Gi Cocktail) 20 ml 1X ONCE SWSW Last administered on 08/15/20at 17:05; Start 08/15/20 at 17:00; Stop 08/15/20 at 17:01; Status DC Fentanyl Citrate (Fentanyl 2ml Vial) 50 mcg PRN Q15MIN PRN IV PAIN GREATER THAN 3/10 Last administered on 08/15/20at 20:15; Start 08/15/20 at 17:00; Stop 08/16/20 at 16:59 Ondansetron HCl (Zofran) 4 mg 1X ONCE IVP Last administered on 08/15/20at 17:04; Start 08/15/20 at 17:00; Stop 08/15/20 at 17:01; Status DC Famotidine (Pepcid Vial) 20 mg 1X ONCE IVP Last administered on 08/15/20at 17:11; Start 08/15/20 at 17:00; Stop 08/15/20 at 17:01; Status DC Sodium Chloride 1,000 ml @ 1,000 mls/hr 1X ONCE IV Last administered on 08/15/20at 17:04; Start 08/15/20 at 17:00; Stop 08/15/20 at 17:59; Status DC Nitroglycerin (Nitrostat) 0.4 mg PRN Q5MIN PRN SL CHEST PAIN Last administered on 08/15/20at 17:48; Start 08/15/20 at 17:30 Iohexol (Omnipaque 300 Mg/ml) 60 ml 1X ONCE IV Last administered on 08/15/20at 18:03; Start 08/15/20 at 17:45; Stop 08/15/20 at 17:46; Status DC Info (CONTRAST GIVEN -- Rx MONITORING) 1 each PRN DAILY PRN MC SEE COMMENTS; Start 08/15/20 at 17:45; Stop 08/17/20 at 17:44 Ondansetron HCl (Zofran) 4 mg PRN Q8HRS PRN IV NAUSEA/VOMITING; Start 08/15/20 at 19:15; Stop 08/16/20 at 19:14 Fentanyl Citrate (Fentanyl 2ml Vial) 50 mcg PRN Q1HR PRN IV PAIN; Start 08/15/20 at 19:15; Stop 08/16/20 at 19:14 Piperacillin Sod/ Tazobactam Sod 3.375 gm/Sodium Chloride 50 ml @ 100 mls/hr 1X ONCE IV Last administered on 08/15/20at 20:13; Start 08/15/20 at 19:15; Stop 08/15/20 at 19:44; Status DC Sodium Chloride 1,000 ml @ 100 mls/hr 1X ONCE IV Last administered on 08/15/20at 20:13; Start 08/15/20 at 19:15; Stop 08/16/20 at 05:14; Status DC Sennosides (Senna) 17.2 mg PRN BID PRN PO CONSTIPATION; Start 08/15/20 at 19:45 Docusate Sodium (Colace) 100 mg PRN DAILY PRN PO HARD STOOLS; Start 08/15/20 at 19:45 Ondansetron HCl (Zofran) 4 mg PRN Q6HRS PRN IVP NAUSEA/VOMITING; Start 08/15/20 at 19:45 Dextrose (Dextrose 50%-Water Syringe) 12.5 gm PRN Q15MIN PRN IV SEE COMMENTS; Start 08/15/20 at 19:45 Sodium Chloride 1,000 ml @ 100 mls/hr Q10H IV Last administered on 08/16/20at 05:26; Start 08/15/20 at 19:45 Acetaminophen (Tylenol) 650 mg PRN Q4HRS PRN PO TEMP OVER 100.4F OR MILD PAIN; Start 08/15/20 at 19:45 Piperacillin Sod/ Tazobactam Sod 3.375 gm/Sodium Chloride 50 ml @ 100 mls/hr Q6HRS IV Last administered on 08/16/20at 05:26; Start 08/16/20 at 01:00 Enoxaparin Sodium (Lovenox 40mg Syringe) 40 mg Q24H SQ ; Start 08/15/20 at 21:00 Morphine Sulfate (Morphine Sulfate) 1 mg PRN Q1HR PRN IV MODERATE PAIN; Start 08/15/20 at 19:45 Morphine Sulfate (Morphine Sulfate) 2 mg PRN Q2HR PRN IV SEVERE PAIN 7-10; Start 08/15/20 at 04:00; Stop 08/16/20 at 03:59; Status DC Rocuronium Bowen (Zemuron) 50 mg STK-MED ONCE .ROUTE ; Start 08/16/20 at 08:53; Stop 08/16/20 at 08:53; Status DC Fentanyl Citrate (Fentanyl 2ml Vial) 100 mcg STK-MED ONCE .ROUTE ; Start 08/16/20 at 08:53; Stop 08/16/20 at 08:53; Status DC Propofol (Diprivan) 200 mg STK-MED ONCE IV ; Start 08/16/20 at 08:53; Stop 08/16/20 at 08:53; Status DC Lidocaine HCl (Lidocaine Pf 2% Vial) 5 ml STK-MED ONCE .ROUTE ; Start 08/16/20 at 08:53; Stop 08/16/20 at 08:53; Status DC Ketorolac Tromethamine (Toradol 30mg Vial) 30 mg STK-MED ONCE .ROUTE ; Start 08/16/20 at 08:53; Stop 08/16/20 at 08:53; Status DC Dexamethasone Sodium Phosphate (Decadron) 4 mg STK-MED ONCE .ROUTE ; Start 08/16/20 at 08:53; Stop 08/16/20 at 08:53; Status DC Ondansetron HCl (Zofran) 4 mg STK-MED ONCE .ROUTE ; Start 08/16/20 at 08:53; Stop 08/16/20 at 08:53; Status DC Sevoflurane (Ultane) 90 ml STK-MED ONCE IH ; Start 08/16/20 at 08:53; Stop 08/16/20 at 08:54; Status DC Ondansetron HCl (Zofran) 4 mg PRN Q6HRS PRN IV NAUSEA/VOMITING; Start 08/16/20 at 09:15; Stop 08/17/20 at 09:14 Fentanyl Citrate (Fentanyl 2ml Vial) 25 mcg PRN Q5MIN PRN IV MILD PAIN 1-3; Start 08/16/20 at 09:15; Stop 08/17/20 at 09:14 Fentanyl Citrate (Fentanyl 2ml Vial) 50 mcg PRN Q5MIN PRN IV MODERATE TO SEVERE PAIN; Start 08/16/20 at 09:15; Stop 08/17/20 at 09:14 Morphine Sulfate (Morphine Sulfate) 1 mg PRN Q10MIN PRN IV SEVERE PAIN 7-10; Start 08/16/20 at 09:15; Stop 08/17/20 at 09:14 Ringer's Solution 1,000 ml @ 30 mls/hr Q24H IV ; Start 08/16/20 at 09:15; Stop 08/16/20 at 21:14 Hydromorphone HCl (Dilaudid) 0.5 mg PRN Q10MIN PRN IV SEV PAIN, Second choice; Start 08/16/20 at 09:15; Stop 08/17/20 at 09:14 Prochlorperazine Edisylate (Compazine) 5 mg PACU PRN PRN IV NAUSEA, MRX1; Start 08/16/20 at 09:15; Stop 08/17/20 at 09:14 Active Scripts Active Soma (Carisoprodol) 350 Mg Tablet 1 Tab PO QHS Promethazine Hcl 25 Mg Tablet 1 Tab PO PRN Q6HRS Hydrocodone-Apap 7.5-325 (Hydrocodone Bit/Acetaminophen) 1 Each Tablet 1-2 Tab PO PRN Q6HRS PRN Reported Flomax (Tamsulosin Hcl) 0.4 Mg Cap.er.24h 0.4 Mg PO DAILY Abilify (Aripiprazole) 2 Mg Tablet 2 Mg PO DAILY Aspir 81 (Aspirin) 81 Mg Tablet.dr 1 Tab PO DAILY Fish Oil ([place]-3 Fatty Acids) 500 Mg Capsule.dr 1,000 Mg PO DAILY Wellbutrin (Bupropion Hcl) 100 Mg Tablet 450 Mg PO DAILY Lamotrigine 25 Mg Tablet 50 Mg PO DAILY [place] Carbonate 300 Mg Capsule 1 Cap PO DAILY Gabapentin 100 Mg Capsule 100 Mg PO BID Allergies Allergies: Coded Allergies: No Known Drug Allergies (Unverified , 4/5/16) ROS General: No: Chills, Night Sweats, Fatigue, Malaise, Appetite, Other PSYCHOLOGICAL ROS: No: Anxiety, Behavioral Disorder, Concentration difficultie, Decreased libido, Depression, Disorientation, Hallucinations, Hostility, Irritablity, Memory difficulties, Mood Swings, Obsessive thoughts, Physical abuse, Sexual abuse, Sleep disturbances, Suicidal ideation, Other Eyes: No Blurry vision, No Decreased vision, No Double vision, No Dry eyes, No Excessive tearing, No Eye Pain, No Itchy Eyes, No Loss of vision, No Photophobia, No Scotomata, No Uses contacts, No Uses glasses, No Other HEENT: No: Heacaches, Visual Changes, Hearing change, Nasal congestion, Nasal discharge, Oral lesions, Sinus pain, Sore Throat, Epistaxis, Sneezing, Snoring, Tinnitus, Vertigo, Vocal changes, Other ALLERGY AND IMMUNOLOGY: No: Hives, Insect Bite Sensitivity, Itchy/Watery Eyes, Nasal Congestion, Post Nasal Drip, Seasonal Allergies, Other Hematological and Lymphatic: No: Bleeding Problems, Blood Clots, Blood Transfusions, Brusing, Night Sweats, Pallor, Swollen Lymph Nodes, Other ENDOCRINE: No: Breast Changes, Galactorrhea, Hair Pattern Changes, Hot Flashes, Malaise/lethargy, Mood Swings, Palpitations, Polydipsia/polyuria, Skin Changes, Temperature Intolerance, Unexpected Weight Changes, Other Respiratory: No: Cough, Hemoptysis, Orthopnea, Pleuritic Pain, Shortness of breath, SOB with excertion, Sputum Changes, Stridor, Tachypnea, Wheezing, Other Cardiovascular: No Chest Pain, No Palpitations, No Orthopnea, No Paroxysmal Noc. Dyspnea, No Edema, No Lt Headedness, No Other Gastrointestinal: Yes Abdominal Pain Genitourinary: No Dysuria, No Frequency, No Incontinence, No Hematuria, No Retention, No Discharge, No Urgency, No Pain, No Flank Pain, No Other, No , No , No , No , No , No , No Neurological: No Behavorial Changes, No Bowel/Bladder ControlChng, No Confusion, No Dizziness, No Gait Disturbance, No Headaches, No Impaired Coord/balance, No Memory Loss, No Numbness/Tingling, No Seizures, No Speech Problems, No Tremors, No Visual Changes, No Weakness, No Other Skin: No Dry Skin, No Eczema, No Hair Changes, No Lumps, No Mole Changes, No Mottling, No Nail Changes, No Pruritus, No Rash, No Skin Lesion Changes, No Other, No Acne Physical Exam General: Alert, Oriented X3, Cooperative HEENT: Atraumatic Lungs: Clear to auscultation Heart: Regular rate Abdomen: Soft (Tender to palpation right upper quadrant) Extremities: No clubbing, No cyanosis Skin: No rashes Neuro: Normal speech Psych/Mental Status: Mental status NL Vitals VITALS Vital Signs Date Time Temp Pulse Resp B/P (MAP) Pulse Ox O2 Delivery O2 Flow Rate FiO2 08/16/20 04:30 94 08/16/20 04:17 Room Air 08/16/20 02:00 98.1 77 18 126/56 (79) 98.1 Labs Labs Laboratory Tests Test 08/15/20 17:15 08/15/20 19:10 08/15/20 20:20 08/16/20 02:30 White Blood Count 12.7 x10^3/uL (4.0-11.0) 10.1 x10^3/uL (4.0-11.0) Red Blood Count 5.03 x10^6/uL (4.30-5.70) 4.44 x10^6/uL (4.30-5.70) Hemoglobin 14.1 g/dL (13.0-17.5) 12.5 g/dL (13.0-17.5) Hematocrit 42.6 % (39.0-53.0) 37.0 % (39.0-53.0) Mean Corpuscular Volume 85 fL (79-100) 83 fL (79-100) Mean Corpuscular Hemoglobin 28 pg (25-35) 28 pg (25-35) Mean Corpuscular Hemoglobin Concent 33 g/dL (31-37) 34 g/dL (31-37) Red Cell Distribution Width 14.1 % (11.5-14.5) 14.5 % (11.5-14.5) Platelet Count 273 x10^3/uL (140-400) 246 x10^3/uL (140-400) Neutrophils (%) (Auto) 81 % (31-73) 71 % (31-73) Lymphocytes (%) (Auto) 9 % (24-48) 14 % (24-48) Monocytes (%) (Auto) 9 % (0-9) 13 % (0-9) Eosinophils (%) (Auto) 0 % (0-3) 1 % (0-3) Basophils (%) (Auto) 1 % (0-3) 0 % (0-3) Neutrophils # (Auto) 10.3 x10^3/uL (1.8-7.7) 7.2 x10^3/uL (1.8-7.7) Lymphocytes # (Auto) 1.2 x10^3/uL (1.0-4.8) 1.4 x10^3/uL (1.0-4.8) Monocytes # (Auto) 1.1 x10^3/uL (0.0-1.1) 1.3 x10^3/uL (0.0-1.1) Eosinophils # (Auto) 0.1 x10^3/uL (0.0-0.7) 0.1 x10^3/uL (0.0-0.7) Basophils # (Auto) 0.1 x10^3/uL (0.0-0.2) 0.0 x10^3/uL (0.0-0.2) Sodium Level 138 mmol/L (136-145) 141 mmol/L (136-145) Potassium Level 4.1 mmol/L (3.5-5.1) 4.0 mmol/L (3.5-5.1) Chloride Level 102 mmol/L (98-107) 105 mmol/L (98-107) Carbon Dioxide Level 27 mmol/L (21-32) 29 mmol/L (21-32) Anion Gap 9 (6-14) 7 (6-14) Blood Urea Nitrogen 15 mg/dL (8-26) 13 mg/dL (8-26) Creatinine 1.3 mg/dL (0.7-1.3) 1.3 mg/dL (0.7-1.3) Estimated GFR (Cockcroft-Gault) 54.9 54.9 BUN/Creatinine Ratio 12 (6-20) 10 (6-20) Glucose Level 130 mg/dL (70-99) 114 mg/dL (70-99) Calcium Level 9.1 mg/dL (8.5-10.1) 8.3 mg/dL (8.5-10.1) Magnesium Level 2.1 mg/dL (1.8-2.4) 2.2 mg/dL (1.8-2.4) Total Bilirubin 0.5 mg/dL (0.2-1.0) 0.5 mg/dL (0.2-1.0) Aspartate Amino Transf (AST/SGOT) 28 U/L (15-37) 27 U/L (15-37) Alanine Aminotransferase (ALT/SGPT) 42 U/L (16-63) 48 U/L (16-63) Alkaline Phosphatase 73 U/L (46-116) 84 U/L (46-116) Troponin I Quantitative < 0.017 ng/mL (0.000-0.055) < 0.017 ng/mL (0.000-0.055) AT-Dai-O-Type Natriuretic Peptide 50 pg/mL (0-124) Total Protein 7.3 g/dL (6.4-8.2) 6.1 g/dL (6.4-8.2) Albumin 3.5 g/dL (3.4-5.0) 2.9 g/dL (3.4-5.0) Albumin/Globulin Ratio 0.9 (1.0-1.7) 0.9 (1.0-1.7) Lipase 43 U/L (73-393) Ethyl Alcohol Level < 10 mg/dL (0-10) Urine Collection Type Unknown Urine Color Yellow Urine Clarity Clear Urine pH 6.0 (<5.0-8.0) Urine Specific [place] >=1.030 (1.000-1.030) Urine Protein 30 mg/dL (NEG-TRACE) Urine Glucose (UA) Negative mg/dL (NEG) Urine Ketones (Stick) 15 mg/dL (NEG) Urine Blood Negative (NEG) Urine Nitrite Negative (NEG) Urine Bilirubin Negative (NEG) Urine Urobilinogen Dipstick 0.2 mg/dL (0.2 mg/dL) Urine Leukocyte Esterase Negative (NEG) Urine RBC 0 /HPF (0-2) Urine WBC 0 /HPF (0-4) Urine Bacteria 0 /HPF (0-FEW) Urine Mucus Slight /LPF Urine Opiates Screen Neg (NEG) Urine Methadone Screen Neg (NEG) Urine Barbiturates Neg (NEG) Urine Phencyclidine Screen Neg (NEG) Urine Amphetamine/Methamphetamine Neg (NEG) Urine Benzodiazepines Screen Neg (NEG) Urine Cocaine Screen Neg (NEG) Urine Cannabinoids Screen Neg (NEG) Urine Ethyl Alcohol Neg (NEG) SARS-CoV-2 Antigen (Rapid) Negative (NEGATIVE) Phosphorus Level 2.9 mg/dL (2.6-4.7) Laboratory Tests Test 08/15/20 17:15 08/15/20 19:10 08/15/20 20:20 08/16/20 02:30 White Blood Count 12.7 x10^3/uL (4.0-11.0) 10.1 x10^3/uL (4.0-11.0) Red Blood Count 5.03 x10^6/uL (4.30-5.70) 4.44 x10^6/uL (4.30-5.70) Hemoglobin 14.1 g/dL (13.0-17.5) 12.5 g/dL (13.0-17.5) Hematocrit 42.6 % (39.0-53.0) 37.0 % (39.0-53.0) Mean Corpuscular Volume 85 fL (79-100) 83 fL (79-100) Mean Corpuscular Hemoglobin 28 pg (25-35) 28 pg (25-35) Mean Corpuscular Hemoglobin Concent 33 g/dL (31-37) 34 g/dL (31-37) Red Cell Distribution Width 14.1 % (11.5-14.5) 14.5 % (11.5-14.5) Platelet Count 273 x10^3/uL (140-400) 246 x10^3/uL (140-400) Neutrophils (%) (Auto) 81 % (31-73) 71 % (31-73) Lymphocytes (%) (Auto) 9 % (24-48) 14 % (24-48) Monocytes (%) (Auto) 9 % (0-9) 13 % (0-9) Eosinophils (%) (Auto) 0 % (0-3) 1 % (0-3) Basophils (%) (Auto) 1 % (0-3) 0 % (0-3) Neutrophils # (Auto) 10.3 x10^3/uL (1.8-7.7) 7.2 x10^3/uL (1.8-7.7) Lymphocytes # (Auto) 1.2 x10^3/uL (1.0-4.8) 1.4 x10^3/uL (1.0-4.8) Monocytes # (Auto) 1.1 x10^3/uL (0.0-1.1) 1.3 x10^3/uL (0.0-1.1) Eosinophils # (Auto) 0.1 x10^3/uL (0.0-0.7) 0.1 x10^3/uL (0.0-0.7) Basophils # (Auto) 0.1 x10^3/uL (0.0-0.2) 0.0 x10^3/uL (0.0-0.2) Sodium Level 138 mmol/L (136-145) 141 mmol/L (136-145) Potassium Level 4.1 mmol/L (3.5-5.1) 4.0 mmol/L (3.5-5.1) Chloride Level 102 mmol/L (98-107) 105 mmol/L (98-107) Carbon Dioxide Level 27 mmol/L (21-32) 29 mmol/L (21-32) Anion Gap 9 (6-14) 7 (6-14) Blood Urea Nitrogen 15 mg/dL (8-26) 13 mg/dL (8-26) Creatinine 1.3 mg/dL (0.7-1.3) 1.3 mg/dL (0.7-1.3) Estimated GFR (Cockcroft-Gault) 54.9 54.9 BUN/Creatinine Ratio 12 (6-20) 10 (6-20) Glucose Level 130 mg/dL (70-99) 114 mg/dL (70-99) Calcium Level 9.1 mg/dL (8.5-10.1) 8.3 mg/dL (8.5-10.1) Magnesium Level 2.1 mg/dL (1.8-2.4) 2.2 mg/dL (1.8-2.4) Total Bilirubin 0.5 mg/dL (0.2-1.0) 0.5 mg/dL (0.2-1.0) Aspartate Amino Transf (AST/SGOT) 28 U/L (15-37) 27 U/L (15-37) Alanine Aminotransferase (ALT/SGPT) 42 U/L (16-63) 48 U/L (16-63) Alkaline Phosphatase 73 U/L (46-116) 84 U/L (46-116) Troponin I Quantitative < 0.017 ng/mL (0.000-0.055) < 0.017 ng/mL (0.000-0.055) TJ-Int-L-Type Natriuretic Peptide 50 pg/mL (0-124) Total Protein 7.3 g/dL (6.4-8.2) 6.1 g/dL (6.4-8.2) Albumin 3.5 g/dL (3.4-5.0) 2.9 g/dL (3.4-5.0) Albumin/Globulin Ratio 0.9 (1.0-1.7) 0.9 (1.0-1.7) Lipase 43 U/L (73-393) Ethyl Alcohol Level < 10 mg/dL (0-10) Urine Collection Type Unknown Urine Color Yellow Urine Clarity Clear Urine pH 6.0 (<5.0-8.0) Urine Specific [place] >=1.030 (1.000-1.030) Urine Protein 30 mg/dL (NEG-TRACE) Urine Glucose (UA) Negative mg/dL (NEG) Urine Ketones (Stick) 15 mg/dL (NEG) Urine Blood Negative (NEG) Urine Nitrite Negative (NEG) Urine Bilirubin Negative (NEG) Urine Urobilinogen Dipstick 0.2 mg/dL (0.2 mg/dL) Urine Leukocyte Esterase Negative (NEG) Urine RBC 0 /HPF (0-2) Urine WBC 0 /HPF (0-4) Urine Bacteria 0 /HPF (0-FEW) Urine Mucus Slight /LPF Urine Opiates Screen Neg (NEG) Urine Methadone Screen Neg (NEG) Urine Barbiturates Neg (NEG) Urine Phencyclidine Screen Neg (NEG) Urine Amphetamine/Methamphetamine Neg (NEG) Urine Benzodiazepines Screen Neg (NEG) Urine Cocaine Screen Neg (NEG) Urine Cannabinoids Screen Neg (NEG) Urine Ethyl Alcohol Neg (NEG) SARS-CoV-2 Antigen (Rapid) Negative (NEGATIVE) Phosphorus Level 2.9 mg/dL (2.6-4.7) Assessment/Plan Assessment/Plan 70-year-old male with abdominal pain, suspect acute cholecystitis based on radiographic testing. Recommend laparoscopic cholecystectomy. The details and risks of surgery were discussed with the patient. He understands and would like to proceed. POLO HARVEY MD Aug 16, 2020 09:24
--- NOTE | 2020-08-16 09:31 | PDOC ---
[employer] PROGRESS NOTE Date of Service DOS: DATE: 08/16/20 TIME: 09:30 Chief Complaint Chief Complaint Acute abdominal pain due to cholecystitis Reactive leukocytosis Admit to medicine Surgery consult Serial abdominal exams Consider GI consult if dilated CBD and concern for choledocholithiasis IV Dilaudid as needed N.p.o. Lovenox for DVT prophylaxis, hold 12 hours before surgery Protonix GI prophylaxis Full code Discussed with RN and SW Dispo pending surgery evaluation History of Present Illness History of Present Illness 08/16/2020 No acute events overnight. Patient remains afebrile. Patient seen and examined bedside. On-call to the OR this afternoon for laparoscopic cholecystectomy. Patient's chart, labs, images were reviewed and discussed with RN 70 year old male with history of high cholesterol, depression, appendectomy, who presents to the ED today complaining of 10 out of 10 sharp epigastric abdominal pain with nausea no vomiting, symptoms began last night. Patient denies any exacerbating or relieving factors. Denies any diarrhea. He states he had a normal bowel movement today. Denies any fever. Vitals/I&O Vitals/I&O: Vital Signs Date Time Temp Pulse Resp B/P (MAP) Pulse Ox O2 Delivery O2 Flow Rate FiO2 08/16/20 04:30 94 08/16/20 04:17 Room Air 08/16/20 02:00 98.1 77 18 126/56 (79) 98.1 I & O 08/15/20 08/15/20 08/16/20 15:00 23:00 07:00 Intake Total 1000 ml Output Total 300 ml 400 ml Balance 700 ml -400 ml Physical Exam General: Alert, Oriented X3, Cooperative Heart: Regular rate Abdomen: Soft (Tender to palpation right upper quadrant) Extremities: No clubbing, No cyanosis Skin: No rashes Labs Labs: Laboratory Tests Test 08/15/20 17:15 08/15/20 19:10 08/15/20 20:20 08/16/20 02:30 White Blood Count 12.7 x10^3/uL (4.0-11.0) 10.1 x10^3/uL (4.0-11.0) Red Blood Count 5.03 x10^6/uL (4.30-5.70) 4.44 x10^6/uL (4.30-5.70) Hemoglobin 14.1 g/dL (13.0-17.5) 12.5 g/dL (13.0-17.5) Hematocrit 42.6 % (39.0-53.0) 37.0 % (39.0-53.0) Mean Corpuscular Volume 85 fL (79-100) 83 fL (79-100) Mean Corpuscular Hemoglobin 28 pg (25-35) 28 pg (25-35) Mean Corpuscular Hemoglobin Concent 33 g/dL (31-37) 34 g/dL (31-37) Red Cell Distribution Width 14.1 % (11.5-14.5) 14.5 % (11.5-14.5) Platelet Count 273 x10^3/uL (140-400) 246 x10^3/uL (140-400) Neutrophils (%) (Auto) 81 % (31-73) 71 % (31-73) Lymphocytes (%) (Auto) 9 % (24-48) 14 % (24-48) Monocytes (%) (Auto) 9 % (0-9) 13 % (0-9) Eosinophils (%) (Auto) 0 % (0-3) 1 % (0-3) Basophils (%) (Auto) 1 % (0-3) 0 % (0-3) Neutrophils # (Auto) 10.3 x10^3/uL (1.8-7.7) 7.2 x10^3/uL (1.8-7.7) Lymphocytes # (Auto) 1.2 x10^3/uL (1.0-4.8) 1.4 x10^3/uL (1.0-4.8) Monocytes # (Auto) 1.1 x10^3/uL (0.0-1.1) 1.3 x10^3/uL (0.0-1.1) Eosinophils # (Auto) 0.1 x10^3/uL (0.0-0.7) 0.1 x10^3/uL (0.0-0.7) Basophils # (Auto) 0.1 x10^3/uL (0.0-0.2) 0.0 x10^3/uL (0.0-0.2) Sodium Level 138 mmol/L (136-145) 141 mmol/L (136-145) Potassium Level 4.1 mmol/L (3.5-5.1) 4.0 mmol/L (3.5-5.1) Chloride Level 102 mmol/L (98-107) 105 mmol/L (98-107) Carbon Dioxide Level 27 mmol/L (21-32) 29 mmol/L (21-32) Anion Gap 9 (6-14) 7 (6-14) Blood Urea Nitrogen 15 mg/dL (8-26) 13 mg/dL (8-26) Creatinine 1.3 mg/dL (0.7-1.3) 1.3 mg/dL (0.7-1.3) Estimated GFR (Cockcroft-Gault) 54.9 54.9 BUN/Creatinine Ratio 12 (6-20) 10 (6-20) Glucose Level 130 mg/dL (70-99) 114 mg/dL (70-99) Calcium Level 9.1 mg/dL (8.5-10.1) 8.3 mg/dL (8.5-10.1) Magnesium Level 2.1 mg/dL (1.8-2.4) 2.2 mg/dL (1.8-2.4) Total Bilirubin 0.5 mg/dL (0.2-1.0) 0.5 mg/dL (0.2-1.0) Aspartate Amino Transf (AST/SGOT) 28 U/L (15-37) 27 U/L (15-37) Alanine Aminotransferase (ALT/SGPT) 42 U/L (16-63) 48 U/L (16-63) Alkaline Phosphatase 73 U/L (46-116) 84 U/L (46-116) Troponin I Quantitative < 0.017 ng/mL (0.000-0.055) < 0.017 ng/mL (0.000-0.055) SF-Spz-W-Type Natriuretic Peptide 50 pg/mL (0-124) Total Protein 7.3 g/dL (6.4-8.2) 6.1 g/dL (6.4-8.2) Albumin 3.5 g/dL (3.4-5.0) 2.9 g/dL (3.4-5.0) Albumin/Globulin Ratio 0.9 (1.0-1.7) 0.9 (1.0-1.7) Lipase 43 U/L (73-393) Ethyl Alcohol Level < 10 mg/dL (0-10) Urine Collection Type Unknown Urine Color Yellow Urine Clarity Clear Urine pH 6.0 (<5.0-8.0) Urine Specific [place] >=1.030 (1.000-1.030) Urine Protein 30 mg/dL (NEG-TRACE) Urine Glucose (UA) Negative mg/dL (NEG) Urine Ketones (Stick) 15 mg/dL (NEG) Urine Blood Negative (NEG) Urine Nitrite Negative (NEG) Urine Bilirubin Negative (NEG) Urine Urobilinogen Dipstick 0.2 mg/dL (0.2 mg/dL) Urine Leukocyte Esterase Negative (NEG) Urine RBC 0 /HPF (0-2) Urine WBC 0 /HPF (0-4) Urine Bacteria 0 /HPF (0-FEW) Urine Mucus Slight /LPF Urine Opiates Screen Neg (NEG) Urine Methadone Screen Neg (NEG) Urine Barbiturates Neg (NEG) Urine Phencyclidine Screen Neg (NEG) Urine Amphetamine/Methamphetamine Neg (NEG) Urine Benzodiazepines Screen Neg (NEG) Urine Cocaine Screen Neg (NEG) Urine Cannabinoids Screen Neg (NEG) Urine Ethyl Alcohol Neg (NEG) SARS-CoV-2 Antigen (Rapid) Negative (NEGATIVE) Phosphorus Level 2.9 mg/dL (2.6-4.7) Assessment and Plan Assessmemt and Plan Problems Medical Problems: (1) Acute cholecystitis Status: Acute Comment Review of Relevant I have reviewed the following items hailey (where applicable) has been applied. Medications: Current Medications Medications (Trade) Dose Ordered Sig/Malia Route PRN Reason Start Time Stop Time Status Last Admin Dose Admin Multi-Ingredient Mouthwash/Gargle (Gi Cocktail) 20 ml 1X ONCE SWSW 08/15/20 17:00 08/15/20 17:01 DC 08/15/20 17:05 Fentanyl Citrate (Fentanyl 2ml Vial) 50 mcg PRN Q15MIN PRN IV PAIN GREATER THAN 3/10 08/15/20 17:00 08/16/20 16:59 08/15/20 20:15 Ondansetron HCl (Zofran) 4 mg 1X ONCE IVP 08/15/20 17:00 08/15/20 17:01 DC 08/15/20 17:04 Famotidine (Pepcid Vial) 20 mg 1X ONCE IVP 08/15/20 17:00 08/15/20 17:01 DC 08/15/20 17:11 Sodium Chloride 1,000 ml @ 1,000 mls/hr 1X ONCE IV 08/15/20 17:00 08/15/20 17:59 DC 08/15/20 17:04 Nitroglycerin (Nitrostat) 0.4 mg PRN Q5MIN PRN SL CHEST PAIN 08/15/20 17:30 08/15/20 17:48 Iohexol (Omnipaque 300 Mg/ml) 60 ml 1X ONCE IV 08/15/20 17:45 08/15/20 17:46 DC 08/15/20 18:03 Piperacillin Sod/ Tazobactam Sod 3.375 gm/Sodium Chloride 50 ml @ 100 mls/hr 1X ONCE IV 08/15/20 19:15 08/15/20 19:44 DC 08/15/20 20:13 Sodium Chloride 1,000 ml @ 100 mls/hr 1X ONCE IV 08/15/20 19:15 08/16/20 05:14 DC 08/15/20 20:13 Sodium Chloride 1,000 ml @ 100 mls/hr Q10H IV 08/15/20 19:45 08/16/20 05:26 Piperacillin Sod/ Tazobactam Sod 3.375 gm/Sodium Chloride 50 ml @ 100 mls/hr Q6HRS IV 08/16/20 01:00 08/16/20 05:26 Justifications for Admission Abdominal Pain Indications Is patient in severe pain?: Yes Justification for admission: Patient has severe pain that requires (parenteral analgesic-please state analgesics and route) at least every 4 hours necessitating inpatient level of care. Is NPO status required?: Yes Justification for admission: Patient may require to be NPO for greater 24hours making it medically necessary to manage patient as inpatient. Other Justification MELIDA MORSE MD Aug 16, 2020 09:31
[2020-08-16] MEDS ORDERED: BUPIVACAINE MPF 0.5% 30 ML VIAL. ONE (10:29)
[2020-08-16] MEDS ORDERED: SURGICEL HEMOSTAT 4X8 EACH. ONE (10:29)
[2020-08-16] MEDS ORDERED: IOHEXOL 300 MG/ML 50 ML VIAL. ONE (10:29)
[2020-08-16] MEDS ORDERED: GLYCOPYRROLATE 1 MG/5 ML VIAL. ONE (11:14)
[2020-08-16] MEDS ORDERED: NEOSTIGMINE METHYLSULFATE 5 MG/5 ML SYRINGE. ONE (11:14)
--- NOTE | 2020-08-16 11:57 | PDOC4 ---
Operative Note Operative Note Operative Note: Preoperative Diagnosis: Acute cholecystitis Postoperative Diagnosis: Same Procedure: Laparoscopic cholecystectomy with intraoperative cholangiogram Surgeons: [employer] Farmworker: ANTHONY Bernal Anesthesia: Gen. Estimated Blood Loss: 25 mL Specimen: Gallbladder to pathology Drains: None Complications: None Indications: The patient is a 70-year-old male who was admitted with clinical and radiographic evidence of acute cholecystitis. Surgical treatment was offered by means of a laparoscopic cholecystectomy. The risks of surgery were discussed which include bleeding, infection, bile duct injury, bile leak, pain, the potential for additional surgeries or procedures. The patient understands and would like to proceed. Description: The patient was taken to the operating room and laid supine on the operating table. General anesthesia was performed. The abdomen was prepped with ChloraPrep and draped in a standard surgical fashion. A small supraumbilical incision was made with a scalpel. The Veress needle was then inserted and a pneumoperitoneum was then created. A 5 mm trocar was then inserted and the laparoscope was introduced. In the upper midabdomen an 11 mm trocar was inserted and in the right upper quadrant two 5 mm trochars were inserted. There was some adhesions to the wall of the gallbladder that were mobilized inferiorly. The gallbladder was markedly distended and thick-walled. With an aspirating needle a significant amount of purulent fluid was suctioned providing gallbladder decompression. The gallbladder was retracted cephalad. The cystic duct was dissected free from surrounding tissues. One clip was placed on the duct near the gallbladder junction. An opening was made in the duct and a cholangiocatheter placed within and secured with a clip. Using contrast dye and fluoroscopy an intraoperative cholangiogram was performed that appeared unremarkable. The clip and catheter were then withdrawn. Three clips were placed on the cystic duct and it was divided. The cystic artery was then identified, dissected free, doubly clipped and divided as well. The gallbladder was then mobilized away from the liver with cautery. A Surgicel pack was placed on the gallbladder fossa to assist with hemostasis. The gallbladder was then placed in an endoscopic bag and extracted at the superior trocar site. The fascia there was closed with an 0 PDS sutures. All blood and irrigation fluid was suctioned and hemostasis was good. The remaining ports were removed and the pneumoperitoneum was relieved. The skin incisions were closed using 4-0 Monocryl suture. Steri-Strips and dressings were then applied. The patient tolerated the procedure well and was sent to the recovery room in stable condition. At the end of the case all counts were correct. POLO HARVEY MD Aug 16, 2020 11:57
[2020-08-16] MEDS ORDERED: HYDROcodone/APAP 5/325MG 1 TAB TABLET PO PRN (12:00)
--- NOTE | 2020-08-16 13:37 | RAD ---
Intraoperative cholangiogram INDICATION: Cholangiogram in OR with C-arm. Acute cholecystitis. COMPARISON: 06/15/2021 abdomen ultrasound, and CT with IV contrast that same day. TECHNIQUE: A total of 26.3 seconds of fluoroscopy time was provided for intraoperative cholangiograph y during laparoscopic cholecystectomy. 4 images were acquired for procedural documentation. FINDINGS: Intraoperative cholangiogram shows a small rounded subtle filling defect in the distal common bile du ct without findings of obstruction. No extravasation of contrast from the biliary tree or the cystic duct stump. No delay in filling of the duodenum from the ampulla. IMPRESSION: Tiny filling defect in the distal common bile duct, potentially representing an air bubble. Otherwise unremarkable postcholecystectomy intraoperative cholangiogram. Discussed with Dr. Pedroza by telephone at 1:32 PM on 08/16/2020. Electronically signed by: Ava Araujo MD (08/16/2020 1:34 PM) [facility] [place]
[2020-08-16] MEDS: HYDROcodone/APAP 5/325MG 1 TAB TABLET PO PRN ×2 (18:13→22:14)
[2020-08-16] MEDS ORDERED: ARIP5TAB13 PO (19:48)
[2020-08-16] MEDS ORDERED: BUPR300T3 PO (19:50)
[2020-08-16] MEDS ORDERED: ESCITALOPRAM OX10 MG PO (19:50)
[2020-08-16] MEDS ORDERED: ATOR20TA58 PO (19:51)
[2020-08-16] MEDS ORDERED: PANT40TA77 PO (19:51)
[2020-08-17] MEDS: IV NORMAL SALINE 1000ML BAG 1,000 ML IV SCH (01:45)
[2020-08-17 03:00] VITALS: BP 119/61
[2020-08-17] MEDS: PIPERACILLIN/TAZOBACTAM 3.375 GM in IV NORMAL SALINE 50ML 50 ML IV SCH (05:41)
[2020-08-17 08:00] VITALS: BP 118/59
[2020-08-17] MEDS: ENOXAPARIN 40 MG/0.4 ML SYRINGE. SQ SCH (08:40)
--- NOTE | 2020-08-17 08:54 | PDOC ---
[employer] PROGRESS NOTE Date of Service DOS: DATE: 08/17/20 TIME: 08:48 Chief Complaint Chief Complaint Acute abdominal pain due to cholecystitis Reactive leukocytosis ROXIE on CPAP - used device in house History of Present Illness History of Present Illness Mr Stevenson is a 70 year old male with history of high cholesterol, depression, appendectomy, who presents to the ED 08/15/20 complaining of 10 out of 10 sharp epigastric abdominal pain with nausea no vomiting, symptoms began 08/14/20 overnight. Patient denies any exacerbating or relieving factors. Denied any diarrhea. Denies any fever. Found with acute cholecystitis on imaging. 08/16: No acute events overnight. Patient remains afebrile. To the OR for laparoscopic cholecystectomy with no complications. Afebrile passing flatus. No nausea vomiting diarrhea. He ate a big breakfast feels better seen by general surgery okay for discharge home. Vitals/I&O Vitals/I&O: Vital Signs Date Time Temp Pulse Resp B/P (MAP) Pulse Ox O2 Delivery O2 Flow Rate FiO2 08/17/20 08:00 97.9 58 18 118/59 (78) 95 Room Air 97.9 08/16/20 12:25 8 I & O 08/16/20 08/16/20 08/17/20 15:00 23:00 07:00 Intake Total 900 ml 500 ml 600 ml Output Total 250 ml Balance 650 ml 500 ml 600 ml Physical Exam General: Alert, Oriented X3, Cooperative Heart: Regular rate Abdomen: Soft (Tender to palpation right upper quadrant) Extremities: No clubbing, No cyanosis Skin: No rashes Assessment and Plan Assessmemt and Plan Problems Medical Problems: (1) Acute cholecystitis Status: Acute Comment Review of Relevant I have reviewed the following items hailey (where applicable) has been applied. Medications: Current Medications Medications (Trade) Dose Ordered Sig/Malia Route PRN Reason Start Time Stop Time Status Last Admin Dose Admin Iohexol (Omnipaque 300 Mg/ml) 50 ml STK-MED ONCE .ROUTE 08/16/20 10:29 08/16/20 10:29 DC 08/16/20 11:10 Cellulose (Surgicel Hemostat 4x8) 1 each STK-MED ONCE .ROUTE 08/16/20 10:29 08/16/20 10:30 DC 08/16/20 11:10 Bupivacaine HCl (Sensorcaine Mpf 0.5%) 30 ml STK-MED ONCE .ROUTE 08/16/20 10:29 08/16/20 10:30 DC 08/16/20 11:10 Acetaminophen/ Hydrocodone Bitart (Lortab 5/325) 2 tab PRN Q4HRS PRN PO PAIN 08/16/20 12:15 08/16/20 22:14 Justifications for Admission Abdominal Pain Indications Is patient in severe pain?: Yes Justification for admission: Patient has severe pain that requires (parenteral analgesic-please state analgesics and route) at least every 4 hours necessitating inpatient level of care. Is NPO status required?: Yes Justification for admission: Patient may require to be NPO for greater 24hours making it medically necessary to manage patient as inpatient. Other Justification DELORIS SALINAS MD Aug 17, 2020 08:54
--- NOTE | 2020-08-17 08:59 | PDOC ---
SURGICAL PROGRESS NOTE DATE: 08/17/20 TIME: 08:58 Subjective tolerating diet ambulating pain minimal + flatus Vital Signs Vital Signs Date Time Temp Pulse Resp B/P (MAP) Pulse Ox O2 Delivery O2 Flow Rate FiO2 08/17/20 08:00 97.9 58 18 118/59 (78) 95 Room Air 97.9 08/16/20 12:25 8 I&O Intake and Output 08/17/20 07:00 Intake Total 2000 ml Output Total 250 ml Balance 1750 ml Intake Oral 1100 ml IV Total 900 ml Output Urine Total 225 ml Estimated Blood Loss 25 ml # Voids 4 General: Alert, Oriented X3, Cooperative Abdomen: Soft, Other (lap dressings dry) Labs Laboratory Tests Test 08/15/20 17:15 08/15/20 19:10 08/15/20 20:20 08/16/20 02:30 White Blood Count 12.7 x10^3/uL (4.0-11.0) 10.1 x10^3/uL (4.0-11.0) Red Blood Count 5.03 x10^6/uL (4.30-5.70) 4.44 x10^6/uL (4.30-5.70) Hemoglobin 14.1 g/dL (13.0-17.5) 12.5 g/dL (13.0-17.5) Hematocrit 42.6 % (39.0-53.0) 37.0 % (39.0-53.0) Mean Corpuscular Volume 85 fL (79-100) 83 fL (79-100) Mean Corpuscular Hemoglobin 28 pg (25-35) 28 pg (25-35) Mean Corpuscular Hemoglobin Concent 33 g/dL (31-37) 34 g/dL (31-37) Red Cell Distribution Width 14.1 % (11.5-14.5) 14.5 % (11.5-14.5) Platelet Count 273 x10^3/uL (140-400) 246 x10^3/uL (140-400) Neutrophils (%) (Auto) 81 % (31-73) 71 % (31-73) Lymphocytes (%) (Auto) 9 % (24-48) 14 % (24-48) Monocytes (%) (Auto) 9 % (0-9) 13 % (0-9) Eosinophils (%) (Auto) 0 % (0-3) 1 % (0-3) Basophils (%) (Auto) 1 % (0-3) 0 % (0-3) Neutrophils # (Auto) 10.3 x10^3/uL (1.8-7.7) 7.2 x10^3/uL (1.8-7.7) Lymphocytes # (Auto) 1.2 x10^3/uL (1.0-4.8) 1.4 x10^3/uL (1.0-4.8) Monocytes # (Auto) 1.1 x10^3/uL (0.0-1.1) 1.3 x10^3/uL (0.0-1.1) Eosinophils # (Auto) 0.1 x10^3/uL (0.0-0.7) 0.1 x10^3/uL (0.0-0.7) Basophils # (Auto) 0.1 x10^3/uL (0.0-0.2) 0.0 x10^3/uL (0.0-0.2) Sodium Level 138 mmol/L (136-145) 141 mmol/L (136-145) Potassium Level 4.1 mmol/L (3.5-5.1) 4.0 mmol/L (3.5-5.1) Chloride Level 102 mmol/L (98-107) 105 mmol/L (98-107) Carbon Dioxide Level 27 mmol/L (21-32) 29 mmol/L (21-32) Anion Gap 9 (6-14) 7 (6-14) Blood Urea Nitrogen 15 mg/dL (8-26) 13 mg/dL (8-26) Creatinine 1.3 mg/dL (0.7-1.3) 1.3 mg/dL (0.7-1.3) Estimated GFR (Cockcroft-Gault) 54.9 54.9 BUN/Creatinine Ratio 12 (6-20) 10 (6-20) Glucose Level 130 mg/dL (70-99) 114 mg/dL (70-99) Calcium Level 9.1 mg/dL (8.5-10.1) 8.3 mg/dL (8.5-10.1) Magnesium Level 2.1 mg/dL (1.8-2.4) 2.2 mg/dL (1.8-2.4) Total Bilirubin 0.5 mg/dL (0.2-1.0) 0.5 mg/dL (0.2-1.0) Aspartate Amino Transf (AST/SGOT) 28 U/L (15-37) 27 U/L (15-37) Alanine Aminotransferase (ALT/SGPT) 42 U/L (16-63) 48 U/L (16-63) Alkaline Phosphatase 73 U/L (46-116) 84 U/L (46-116) Troponin I Quantitative < 0.017 ng/mL (0.000-0.055) < 0.017 ng/mL (0.000-0.055) QY-Exx-P-Type Natriuretic Peptide 50 pg/mL (0-124) Total Protein 7.3 g/dL (6.4-8.2) 6.1 g/dL (6.4-8.2) Albumin 3.5 g/dL (3.4-5.0) 2.9 g/dL (3.4-5.0) Albumin/Globulin Ratio 0.9 (1.0-1.7) 0.9 (1.0-1.7) Lipase 43 U/L (73-393) Ethyl Alcohol Level < 10 mg/dL (0-10) Urine Collection Type Unknown Urine Color Yellow Urine Clarity Clear Urine pH 6.0 (<5.0-8.0) Urine Specific [place] >=1.030 (1.000-1.030) Urine Protein 30 mg/dL (NEG-TRACE) Urine Glucose (UA) Negative mg/dL (NEG) Urine Ketones (Stick) 15 mg/dL (NEG) Urine Blood Negative (NEG) Urine Nitrite Negative (NEG) Urine Bilirubin Negative (NEG) Urine Urobilinogen Dipstick 0.2 mg/dL (0.2 mg/dL) Urine Leukocyte Esterase Negative (NEG) Urine RBC 0 /HPF (0-2) Urine WBC 0 /HPF (0-4) Urine Bacteria 0 /HPF (0-FEW) Urine Mucus Slight /LPF Urine Opiates Screen Neg (NEG) Urine Methadone Screen Neg (NEG) Urine Barbiturates Neg (NEG) Urine Phencyclidine Screen Neg (NEG) Urine Amphetamine/Methamphetamine Neg (NEG) Urine Benzodiazepines Screen Neg (NEG) Urine Cocaine Screen Neg (NEG) Urine Cannabinoids Screen Neg (NEG) Urine Ethyl Alcohol Neg (NEG) Coronavirus (PCR) Not detected (Not Detected) SARS-CoV-2 Antigen (Rapid) Negative (NEGATIVE) Phosphorus Level 2.9 mg/dL (2.6-4.7) Problem List Problems Medical Problems: (1) Acute cholecystitis Status: Acute Assessment/Plan s/p liana ok to [place] home FU 2 weeks Justicifation of Admission Dx: Justifications for Admission: Justification of Admission Dx: Yes Comments: cholecystitis MIN REID [employer] Aug 17, 2020 08:59
[2020-08-17] MEDS ORDERED: HYDR-2761 PO ×2 (09:01→09:12)
[2020-08-17] MEDS ORDERED: DOCU-153 PO (09:01)
--- NOTE | 2020-08-17 09:40 | NUR ---
SW following. Discussed with RN, pt from home, room air, GI soft. Pt had surgery on 08/16. Discharge order for home with self care. RN advised no SW needs.
--- NOTE | 2020-08-17 09:40 | PDOC3 ---
Discharge Summary Visit Information Date of Admission: Aug 15, 2020 Date of Discharge: Aug 17, 2020 Admitting Diagnosis: Acute cholecystitis Final Diagnosis Problems Medical Problems: (1) Acute cholecystitis Status: Acute Brief Hospital Course Allergies Allergies Coded Allergies Type Severity Reaction Last Updated Verified No Known Drug Allergies 08/16/20 No Vital Signs Vital Signs Date Time Temp Pulse Resp B/P (MAP) Pulse Ox O2 Delivery O2 Flow Rate FiO2 08/17/20 08:00 97.9 58 18 118/59 (78) 95 Room Air 97.9 08/16/20 12:25 8 Lab Results Laboratory Tests Test 08/15/20 17:15 08/15/20 19:10 08/15/20 20:20 08/16/20 02:30 White Blood Count 12.7 x10^3/uL (4.0-11.0) 10.1 x10^3/uL (4.0-11.0) Red Blood Count 5.03 x10^6/uL (4.30-5.70) 4.44 x10^6/uL (4.30-5.70) Hemoglobin 14.1 g/dL (13.0-17.5) 12.5 g/dL (13.0-17.5) Hematocrit 42.6 % (39.0-53.0) 37.0 % (39.0-53.0) Mean Corpuscular Volume 85 fL (79-100) 83 fL (79-100) Mean Corpuscular Hemoglobin 28 pg (25-35) 28 pg (25-35) Mean Corpuscular Hemoglobin Concent 33 g/dL (31-37) 34 g/dL (31-37) Red Cell Distribution Width 14.1 % (11.5-14.5) 14.5 % (11.5-14.5) Platelet Count 273 x10^3/uL (140-400) 246 x10^3/uL (140-400) Neutrophils (%) (Auto) 81 % (31-73) 71 % (31-73) Lymphocytes (%) (Auto) 9 % (24-48) 14 % (24-48) Monocytes (%) (Auto) 9 % (0-9) 13 % (0-9) Eosinophils (%) (Auto) 0 % (0-3) 1 % (0-3) Basophils (%) (Auto) 1 % (0-3) 0 % (0-3) Neutrophils # (Auto) 10.3 x10^3/uL (1.8-7.7) 7.2 x10^3/uL (1.8-7.7) Lymphocytes # (Auto) 1.2 x10^3/uL (1.0-4.8) 1.4 x10^3/uL (1.0-4.8) Monocytes # (Auto) 1.1 x10^3/uL (0.0-1.1) 1.3 x10^3/uL (0.0-1.1) Eosinophils # (Auto) 0.1 x10^3/uL (0.0-0.7) 0.1 x10^3/uL (0.0-0.7) Basophils # (Auto) 0.1 x10^3/uL (0.0-0.2) 0.0 x10^3/uL (0.0-0.2) Sodium Level 138 mmol/L (136-145) 141 mmol/L (136-145) Potassium Level 4.1 mmol/L (3.5-5.1) 4.0 mmol/L (3.5-5.1) Chloride Level 102 mmol/L (98-107) 105 mmol/L (98-107) Carbon Dioxide Level 27 mmol/L (21-32) 29 mmol/L (21-32) Anion Gap 9 (6-14) 7 (6-14) Blood Urea Nitrogen 15 mg/dL (8-26) 13 mg/dL (8-26) Creatinine 1.3 mg/dL (0.7-1.3) 1.3 mg/dL (0.7-1.3) Estimated GFR (Cockcroft-Gault) 54.9 54.9 BUN/Creatinine Ratio 12 (6-20) 10 (6-20) Glucose Level 130 mg/dL (70-99) 114 mg/dL (70-99) Calcium Level 9.1 mg/dL (8.5-10.1) 8.3 mg/dL (8.5-10.1) Magnesium Level 2.1 mg/dL (1.8-2.4) 2.2 mg/dL (1.8-2.4) Total Bilirubin 0.5 mg/dL (0.2-1.0) 0.5 mg/dL (0.2-1.0) Aspartate Amino Transf (AST/SGOT) 28 U/L (15-37) 27 U/L (15-37) Alanine Aminotransferase (ALT/SGPT) 42 U/L (16-63) 48 U/L (16-63) Alkaline Phosphatase 73 U/L (46-116) 84 U/L (46-116) Troponin I Quantitative < 0.017 ng/mL (0.000-0.055) < 0.017 ng/mL (0.000-0.055) LN-[id number]-Type Natriuretic Peptide 50 pg/mL (0-124) Total Protein 7.3 g/dL (6.4-8.2) 6.1 g/dL (6.4-8.2) Albumin 3.5 g/dL (3.4-5.0) 2.9 g/dL (3.4-5.0) Albumin/Globulin Ratio 0.9 (1.0-1.7) 0.9 (1.0-1.7) Lipase 43 U/L (73-393) Ethyl Alcohol Level < 10 mg/dL (0-10) Urine Collection Type Unknown Urine Color Yellow Urine Clarity Clear Urine pH 6.0 (<5.0-8.0) Urine Specific [place] >=1.030 (1.000-1.030) Urine Protein 30 mg/dL (NEG-TRACE) Urine Glucose (UA) Negative mg/dL (NEG) Urine Ketones (Stick) 15 mg/dL (NEG) Urine Blood Negative (NEG) Urine Nitrite Negative (NEG) Urine Bilirubin Negative (NEG) Urine Urobilinogen Dipstick 0.2 mg/dL (0.2 mg/dL) Urine Leukocyte Esterase Negative (NEG) Urine RBC 0 /HPF (0-2) Urine WBC 0 /HPF (0-4) Urine Bacteria 0 /HPF (0-FEW) Urine Mucus Slight /LPF Urine Opiates Screen Neg (NEG) Urine Methadone Screen Neg (NEG) Urine Barbiturates Neg (NEG) Urine Phencyclidine Screen Neg (NEG) Urine Amphetamine/Methamphetamine Neg (NEG) Urine Benzodiazepines Screen Neg (NEG) Urine Cocaine Screen Neg (NEG) Urine Cannabinoids Screen Neg (NEG) Urine Ethyl Alcohol Neg (NEG) Coronavirus (PCR) Not detected (Not Detected) SARS-CoV-2 Antigen (Rapid) Negative (NEGATIVE) Phosphorus Level 2.9 mg/dL (2.6-4.7) Brief Hospital Course Mr Stevenson is a 70 year old male with history of high cholesterol, depression, ROXIE on CPAP who presents to the ED 08/15/20 complaining of 10 out of 10 sharp epigastric abdominal pain with nausea no vomiting, symptoms began 08/14/20 overnight. Patient denies any exacerbating or relieving factors. Denied any diarrhea. Denies any fever. Found with acute cholecystitis on imaging. 08/16: No acute events overnight. Patient remains afebrile. To the OR for laparoscopic cholecystectomy with no complications. Afebrile passing flatus. No nausea vomiting diarrhea. He ate a big breakfast feels better seen by general surgery okay for discharge home. Consults: General surgery Acute abdominal pain due to cholecystitis Reactive leukocytosis ROXIE on CPAP - used device in house HLD Depression Greater than 30 minutes spent on d/c home Discharge Information Condition at Discharge: Improved Follow Up: Weeks Disposition/Orders: D/C to Home Scheduled Aripiprazole (Abilify) 5 Mg Tablet, 1 TAB PO DAILY for depression for 30 Days, #30 Ref 0 (Reported) Entered as Reported by: NING MILLER RN on 08/16/201947 Last Action: New Order on 08/16/201947 by NING MILLER RN Aspirin (Aspir 81) 81 Mg Tablet.dr, 1 TAB PO DAILY, #30 Ref 5 (Reported) Entered as Reported by: MARY RENTERIA on 10/26/15 1342 Last Action: Reviewed on 08/16/201949 by NING MILLER RN Atorvastatin Calcium (Atorvastatin Calcium) 20 Mg Tablet, 20 MG PO HS for FOR CHOLESTEROL, #30 Ref 0 (Reported) Entered as Reported by: NING MILLER RN on 08/16/201950 Last Action: New Order on 08/16/201950 by NING MILLER RN Bupropion Hcl (Wellbutrin Xl) 300 Mg Tab.er.24h, 1 TAB PO DAILY for depression, #90 Ref 3 (Reported) Entered as Reported by: NING MILLER RN on 08/16/201949 Last Action: New Order on 08/16/201949 by NING MILLER RN Escitalopram Oxalate (Escitalopram Oxalate) 10 Mg Tablet, 1 TAB PO DAILY for depression, #30 Ref 3 (Reported) Entered as Reported by: NING MILLER RN on 08/16/201949 Last Action: New Order on 08/16/201949 by NING MILLER RN Gabapentin (Gabapentin ) 100 Mg Capsule, 100 MG PO BID, (Reported) Entered as Reported by: MARY RENTERIA on 10/26/151339 Last Action: Reviewed on 08/16/201947 by NING MILLER RN [place]-3 Fatty Acids (Fish Oil) 500 Mg Capsule.dr, 1,000 MG PO DAILY, (Reported) Entered as Reported by: MARY RENTERIA on 10/26/151341 Last Action: Reviewed on 08/16/201949 by NING MILLER RN Pantoprazole Sodium (Pantoprazole Sodium ) 40 Mg Tablet.dr, 40 MG PO DAILYAC for GERD, (Reported) Entered as Reported by: NING MILLER RN on 08/16/201950 Last Action: New Order on 08/16/201950 by NING MILLER RN Tamsulosin Hcl (Flomax) 0.4 Mg Cap.er.24h, 0.4 MG PO DAILY, (Reported) Entered as Reported by: MARY RENTERIA on 10/26/151341 Last Action: Reviewed on 08/16/201949 by NING MILLER RN Scheduled PRN Hydrocodone Bit/Acetaminophen (Hydrocodone-Apap 7.5-325 ) 1 Each Tablet, 1-2 TAB PO PRN Q6HRS PRN for PAIN, #80 Ref 0 Prescribed by: SAWYER THORPE MD on 11/03/15 1157 Hydrocodone Bit/Acetaminophen (Hydrocodone-Apap 5-325 ) 1 Tab Tablet, 1 TAB PO PRN Q4HRS PRN for PAIN, #30 Ref 0 Prescribed by: Shannan Squires on 08/17/20 0912 Discontinued Medications Aripiprazole (Abilify) 2 Mg Tablet, 2 MG PO DAILY, (Reported) Entered as Reported by: MARY RENTERIA on 10/26/151341 Last Action: Discontinued on 08/16/201947 by NING MILLER RN Bupropion Hcl (Wellbutrin) 100 Mg Tablet, 450 MG PO DAILY, (Reported) Entered as Reported by: MARY RENTERIA on 10/26/15 1341 Last Action: Discontinued on 08/16/201949 by NING MILLER RN Justicifation of Admission Dx: Justifications for Admission: Justification of Admission Dx: Yes DELORIS SALINAS MD Aug 17, 2020 09:40
--- NOTE | 2020-08-17 12:21 | NUR ---
Patient verbalized discharge instructions. Fax sent to [employer] for work excuse. No questions at this time.
== END 2020-08-17 11:06 | disposition home or self-care (01) | DRG 419 ==
LOC: ER 16:06 → 4 NORTH 19:36
PROVIDERS: ADMIT Internal Medicine; ATTEND Internal Medicine
PROC: BF101ZZ Fluoroscopy of Bile Ducts using Low Osmolar Contrast (ICD-10-PCS; 2020-08-16)
PROC: 0FT44ZZ Resection of Gallbladder, Percutaneous Endoscopic Approach (ICD-10-PCS; principal; 2020-08-16 10:00)
DX: K81.0 Acute cholecystitis (principal); D72.828 Other elevated white blood cell count; E78.00 Pure hypercholesterolemia, unspecified; F17.200 Nicotine dependence, unspecified, uncomplicated; G47.33 Obstructive sleep apnea (adult) (pediatric); K82.8 Other specified diseases of gallbladder; F32.9 Major depressive disorder, single episode, unspecified; K21.9 Gastro-esophageal reflux disease without esophagitis; Z20.822 Contact with and (suspected) exposure to COVID-19; Z79.899 Other long term (current) drug therapy; Z90.49 Acquired absence of other specified parts of digestive tract
CPT/HCPCS: 36415; 74177; 74300; 76705; 80053; 80307; 81001; 83690; 83735; 83880; 84100; 84484; 85025; 87426; 93005; 94660; 96361; 96374; 96375; 99285; G0480; J1100; J1650; J1885; J2405; J2543; J2704; J2710; J3010; J3490; J7030; Q9967; U0003; G0378

== ENCOUNTER → 2020-09-02 | Outpatient (CLI) | payer BC ==
[2020-08-17 08:00] VITALS: BP 118/59
[~2020-09-02] MED LIST changes: +ARIP5TAB13 PO; +ATOR20TA58 PO; +BUPR300T3 PO; +DOCU-153 PO; +ESCITALOPRAM OX10 MG PO; +FINA5TAB4 PO; +HYDR-2761 PO; -MORPHINE SULFATE 4 MG/ML VIAL. IV PRN; +PANT40TA77 PO
[2020-09-02 11:26] LABS: BASO # 0.1 x10^3/uL (0.0-0.2); BASO % 1 % (0-3); EOS # 0.2 x10^3/uL (0.0-0.7); EOS % 3 % (0-3); HEMATOCRIT 43.1 % (39.0-53.0); HEMOGLOBIN 14.7 g/dL (13.0-17.5); LYMPH # 2.1 x10^3/uL (1.0-4.8); LYMPH % 28 % (24-48); MEAN CORPUSCULAR HEMOGLOBIN 28 pg (25-35); MEAN CORPUSCULAR HGB CONC 34 g/dL (31-37); MEAN CORPUSCULAR VOLUME 84 fL (79-100); MONO # 0.7 x10^3/uL (0.0-1.1); MONO % 10 % (0-9); NEUT # 4.2 x10^3/uL (1.8-7.7); NEUT % 58 % (31-73); PLATELET COUNT 295 x10^3/uL (140-400); RED BLOOD COUNT 5.16 x10^6/uL (4.30-5.70); RED CELL DISTRIBUTION WIDTH 14.3 % (11.5-14.5); WHITE BLOOD COUNT 7.3 x10^3/uL (4.0-11.0)
[2020-09-02 11:47] LABS: ALBUMIN 3.7 g/dL (3.4-5.0); ALK PHOS 98 U/L (46-116); ALT (SGPT) 47 U/L (16-63); ANION GAP 7 (6-14); AST (SGOT) 23 U/L (15-37); BLOOD UREA NITROGEN 18 mg/dL (8-26); BUN/CREATININE RATIO 13 (6-20); CALCIUM 9.2 mg/dL (8.5-10.1); CARBON DIOXIDE 28 mmol/L (21-32); CHLORIDE 102 mmol/L (98-107); CHOLESTEROL 164 mg/dL (0-200); CREATININE 1.4 mg/dL (0.7-1.3); GFR 50.4; GLUCOSE 101 mg/dL (70-99); HDLC 46 mg/dL (40-60); POTASSIUM 4.2 mmol/L (3.5-5.1); SODIUM 137 mmol/L (136-145); TOTAL BILIRUBIN 0.4 mg/dL (0.2-1.0); TOTAL PROTEIN 7.4 g/dL (6.4-8.2); TRIGLYCERIDES 564 mg/dL (0-150); VLDLC 113 mg/dL (0-40)
[2020-09-02 11:48] LABS: CHOLESTEROL/HDL RATIO 3.6
== END ==
LOC: LAB 08:07
PROVIDERS: ATTEND Nurse Practitioner Family
DX: Z12.5 Encounter for screening for malignant neoplasm of prostate (principal); Z13.1 Encounter for screening for diabetes mellitus; N40.1 Benign prostatic hyperplasia with lower urinary tract symptoms; E78.5 Hyperlipidemia, unspecified
CPT/HCPCS: 36415; 80053; 80061; 83036; 84443; 85025; 86803; G0103

== ENCOUNTER → 2020-09-03 | Outpatient (CLI) | payer BC ==
[2020-08-17 08:00] VITALS: BP 118/59
--- NOTE | 2020-09-03 11:40 | RAD ---
EXAM: CT Lung Cancer Screening Chest without IV contrast INDICATION: Lung cancer screening. 50 year smoking history with half a pack a day. Patient also has a history of esophageal dilation, cholecystectomy and appendectomy. Compared smoking 2 years ago. TECHNIQUE: Multi-detector row low dose CT images were acquired from the thoracic inlet through the up per abdomen without the use of IV contrast. Scanning parameters were adjusted for evaluation of lung parenchyma for developing lung carcinoma with limited patient exposure. Sagittal and coronal images w ere acquired from the transaxial data. All CT scans performed at this facility utilize dose optimizat ion techniques as appropriate to the exam, including the following: Automated exposure control and ad justment of the mA and/or KV according to patient size (this includes techniques or standardized prot ocols for targeted exams where dose is indication/reason for exam). COMPARISON: Abdomen pelvis CT of 08/15/2020 FINDINGS: The absence of IV contrast limits evaluation of soft tissue pathology. CARDIOVASCULAR: Multivessel coronary calcifications. Normal caliber thoracic aorta. Normal heart size . No pericardial effusion MEDIASTINUM & JERRY: Diffuse esophageal wall thickening is present. No mediastinal mass or adenopathy. Thyroid and trachea are unremarkable. Recommend correlation with the clinical exam, including direct endoscopic visualization if appropriate. LUNGS: No pulmonary infiltrate, nodule, or other focal abnormality. PLEURAL SPACE: No pleural effusions. No pneumothorax. OSSEOUS & SOFT TISSUES: Unremarkable. ABDOMEN: Upper abdomen shows interval cholecystectomy and scattered colonic diverticulosis. Lung-RADS ASSESSMENT: LUNG-RADS CATEGORY 1: Negative/No nodules and definitely benign nodules. -- Continue annual screening with LDCT in 12 months. E3: Soft tissue structures and skeletal structures other than the lungs contain likely unimportant f indings further work up as recommended above IMPRESSION: 1. No suspicious pulmonary nodules or masses. 2. Coronary artery disease and diffuse esophageal wall thickening. Correlate for any evidence of eso phagitis. Electronically signed by: Ava Araujo MD (09/03/2020 11:38 AM) [id number]
== END ==
LOC: CT 08:43
PROVIDERS: ATTEND Internal Medicine
DX: Z12.2 Encounter for screening for malignant neoplasm of respiratory organs (principal); I25.10 Atherosclerotic heart disease of native coronary artery without angina pectoris; Z87.891 Personal history of nicotine dependence
CPT/HCPCS: 71271

== ENCOUNTER → 2020-10-05 | Outpatient (CLI) | payer BC ==
[~2020-10-05] MED LIST changes: +BARIUM SULFATE 340 GM SUSPENSION. PO ONE; +BARIUM SULFATE 60% 355 ML SUSP PO ONE; +BARIUM SULFATE 700 MG TABLET PO ONE; -FINA5TAB4 PO; +SIMETHICONE/SOD BICARB/CITRIC ACID PACKET. PO ONE
--- NOTE | 2020-10-05 09:06 | RAD ---
EXAM: Barium esophagram. HISTORY: 70-year-old male presents with dysphagia. The patient has a history of prior esophageal dila tations. TECHNIQUE: Fluoroscopic imaging was performed in multiple positions and abilities during the oral adm inistration of barium contrast of thin and thick consistencies. Effervescent crystals were administer ed for dedicated air contrast views. A solid barium tablet was administered. 11 fluoroscopic images w ere obtained for total fluoroscopy time of 1.7 minutes. COMPARISON: CT dated 09/03/2020. FINDINGS: There is no evidence of aspiration or penetration. The esophagus is normal in caliber. Ther e is no evidence of an intrinsic esophageal mucosal lesion. There is no convincing stricture. However , there is slight delayed transit of a solid barium tablet beyond the gastroesophageal junction despi te multiple swallowing attempts. There is a mild episode of diffuse esophageal spasm. There is slight gastroesophageal reflux with recumbent position. There is no hiatal hernia. The gastric contour and mucosal pattern is unremarkable. IMPRESSION: 1. Slight delayed transit of a solid barium tablet beyond the gastroesophageal junction. No convincin g stricture or intrinsic mucosal lesion is seen. 2. Single episode of diffuse esophageal spasm. 3. Mild gastroesophageal reflux with recumbent positioning. Electronically signed by: Amy Mon MD (10/05/2020 9:03 AM) [id number]
== END ==
LOC: RAD 10:23
PROVIDERS: ATTEND Internal Medicine Gastroenterology
DX: R13.10 Dysphagia, unspecified (principal)
CPT/HCPCS: 74220

== ENCOUNTER → 2020-11-05 | Outpatient (CLI) | payer BC ==
[~2020-11-05] MED LIST changes: -BARIUM SULFATE 340 GM SUSPENSION. PO ONE; -BARIUM SULFATE 60% 355 ML SUSP PO ONE; -BARIUM SULFATE 700 MG TABLET PO ONE; -SIMETHICONE/SOD BICARB/CITRIC ACID PACKET. PO ONE
--- NOTE | 2020-11-05 15:17 | RAD ---
Examination: MRI of the right knee without contrast HISTORY: History of right knee pain COMPARISON: None available TECHNIQUE: Multiplanar, multisequence MR imaging of the right knee without contrast. FINDINGS: The anterior cruciate and posterior cruciate ligament appears intact. There is oblique increased signal identified in the body and posterior horn of the medial meniscus ex tending to the inferior articular surface likely tear. There is a 1.1 cm cystic extends identified ex tending posteriorly from the posterior horn of the medial meniscus likely meniscal cyst. The extensor mechanism appears intact. The extensor mechanism is intact. The medial collateral ligament is intact. The lateral collateral ligament complex including the fibul ar collateral ligament, biceps Multiple radiation appears intact graft Small knee joint effusion. The medial, lateral retinaculum appears intact. Mild superficial fraying o f cartilage in the medial, lateral, patellofemoral compartments. IMPRESSION: 1. Oblique increased signal identified in the body and posterior horn of the medial meniscus extendi ng to the inferior articular surface likely tear of the medial meniscus with a 1.1 cm cystic extends posteriorly from the posterior horn of the medial meniscus likely meniscal cyst. 2. Small knee joint effusion. 3. Mild tricompartmental degenerative changes. Electronically signed by: Blane Mccartney MD (11/05/2020 3:15 PM) [id number]
== END ==
LOC: MRI 15:01
PROVIDERS: ATTEND Orthopaedic Surgery
DX: M17.11 Unilateral primary osteoarthritis, right knee (principal); M25.461 Effusion, right knee
CPT/HCPCS: 73721

== ENCOUNTER 2020-12-04 06:13 | Day surgery (SDC) | payer BC ==
[~2020-12-04] VITALS: Ht 177.8 cm; Wt 102.1 kg
[~2020-12-04 06:13] MED LIST changes: +FINA5TAB4 PO; +HYDROmorphone 2 MG/ML VIAL IVP PRN; +IV RINGERS,LACTATED 1000ML 1,000 ML IV SCH; +MORPHINE SULFATE 2 MG/ML VIAL. IVP PRN; +PROCHLORPERAZINE 10 MG/2 ML VIAL. IVP PRN; +fentaNYL PF VIAL 100 MCG/2 ML VIAL IVP PRN
[2020-12-04] MEDS ORDERED: KETOROLAC 30 MG/ML VIAL. ONE (06:23)
[2020-12-04] MEDS ORDERED: BUPIVACAINE-EPI 0.25% 30 ML VIAL KIT. ONE ×2 (06:56)
[2020-12-04] MEDS ORDERED: EPINEPHrine VIAL 30 MG/30 ML VIAL ONE (06:56)
[2020-12-04] MEDS ORDERED: ONDANSETRON PF 4 MG/2 ML VIAL. ONE (07:10)
[2020-12-04] MEDS ORDERED: LIDOCAINE 2% PF 5 ML VIAL. ONE (07:10)
[2020-12-04] MEDS ORDERED: PROPOFOL 10 MG/ML (20ML) VIAL. IV ONE (07:10)
[2020-12-04] MEDS ORDERED: fentaNYL PF VIAL 100 MCG/2 ML VIAL ONE (07:10)
[2020-12-04] MEDS ORDERED: DEXAMETHASONE SOD PHOS 4 MG/ML VIAL ONE (07:10)
[2020-12-04] MEDS ORDERED: PHENYLEPHRINE in 0.9% NACL PF 1 MG/10 ML SYRINGE. IV ONE (08:17)
[2020-12-04] MEDS ORDERED: SEVOFLURANE 31 TO 60 MINUTES. IH ONE (08:24)
--- NOTE | 2020-12-04 08:33 | PDOC4 ---
Operative Note Operative Note Date of Procedure: December 04, 2020 Preoperative Diagnosis: right knee medial meniscus tear Postoperative Diagnosis: * complex tear medial meniscus, current injury, right knee, initial encounter, S83.231A * complex tear of lateral meniscus, current injury, right knee, initial encounter, S83.271A Procedures Performed: right knee arthroscopy, surgical, with meniscectomy, medial AND lateral, including meniscal shaving, including debridement/shaving of articular cartilage (chondroplasty) CPT 64216 Surgeon: Sawyer Crespo MD [employer] Officer: CRYSTAL Bernal Anesthesia: General Estimated Blood Loss: 5 mL Specimens: none Drains: none Complications: none Tourniquet time: 25 minutes at 300 mm Hg Indications for Procedure: The patient is a 70-year-old with right knee pain, unrelieved with nonoperative treatment. Exam and MRI are consistent with a meniscus tear. We talked about the risks and benefits of proceeding with an arthroscopic procedure. We talked about potential risks of ongoing pain, progressive arthritis, bleeding, infection, blood clots, or other potential surgical or anesthetic complications. All of the patient's questions about surgery were answered and they desired to proceed. Written consent was obtained. Description of Operation: The patient was identified in the preoperative holding area. The correct right knee was marked by me. The patient was taken to the operating room, where a general anesthetic was used. Preoperative antibiotics were given intravenously. A time-out procedure was performed. A tourniquet was placed on the upper thigh. Local anesthetic 20 mL of 0.25% bupivacaine was injected using sterile technique into the knee joint. The limb was prepared circumferentially with ChloraPrep solution and sterile waterproof arthroscopy drapes were applied. The limb was exsanguinated with an Esmarch bandage and the tourniquet was inflated. Lateral and medial arthroscopy portals were established. The medial meniscus showed a complex unrepairable tear with unstable flaps. A posterior one third meniscectomy was performed with basket forceps and the motorized shaver back to a smooth stable base, and the resection tapered into the middle one-third of the meniscus.The medial tibiofemoral joint showed chondromalacia Outerbridge grade II, so a shaving chondroplasty was performed removing loose unstable fragments of articular cartilage. The intercondylar notch was free of loose bodies, and the ACL was intact. The lateral tibiofemoral joint showed a complex unrepairable meniscus tear in the white-white zones of the anterior and posterior medial meniscus, and a meniscectomy was performed with basket forceps and the motorized shaver back to a smooth stable base which required partial meniscectomy in the anterior and middle one-thirds of the meniscus and did not require total lateral meniscectomy. The lateral articular surfaces showed chondromalacia Outerbridge grade I, so no chondroplasty was required. The patellofemoral joint primarily only at the femur medially and in a relatively small area, showed chondromalacia Outerbridge grade III and IV, and a shaving chondroplasty was performed removing unstable fragments of cartilage with the motorized shaver. The suprapatellar pouch, medial and lateral gutters were free of loose bodies. Copious irrigation was used to drain all meniscal and chondral fragments, and the knee was drained of fluid. The portals were closed with #3-0 Prolene interrupted sutures. Additional local anesthetic, 30 mL of 0.25% bupivacaine with epinephrine was injected. A bulky sterile dressing was applied and the tourniquet was released. Needle and sponge counts were correct and there were no apparent complications. SAWYER CRESPO MD December 04, 2020 08:33
[2020-12-04 09:00] VITALS: BP 150/70
[2020-12-04] MEDS ORDERED: HYDR-2765 PO (09:21)
[2020-12-04] MEDS ORDERED: PROM25TA10 PO (09:22)
== END 2020-12-04 09:55 | disposition home or self-care (01) ==
LOC: SURG 06:13
PROVIDERS: ATTEND Orthopaedic Surgery
DX: S83.231A Complex tear of medial meniscus, current injury, right knee, initial encounter (principal); S83.271A Complex tear of lateral meniscus, current injury, right knee, initial encounter; E78.00 Pure hypercholesterolemia, unspecified; G47.30 Sleep apnea, unspecified; K21.9 Gastro-esophageal reflux disease without esophagitis; M19.90 Unspecified osteoarthritis, unspecified site; F41.9 Anxiety disorder, unspecified; F32.9 Major depressive disorder, single episode, unspecified; N40.0 Benign prostatic hyperplasia without lower urinary tract symptoms; Z20.822 Contact with and (suspected) exposure to COVID-19; Z90.49 Acquired absence of other specified parts of digestive tract; Z98.890 Other specified postprocedural states; Z79.899 Other long term (current) drug therapy; Z79.82 Long term (current) use of aspirin; Z87.891 Personal history of nicotine dependence; X58.XXXA Exposure to other specified factors, initial encounter; Y93.89 Activity, other specified; Y92.89 Other specified places as the place of occurrence of the external cause; Y99.8 Other external cause status
CPT/HCPCS: 29880; 87426; A4930; J0171; J0690; J1100; J1885; J2370; J2405; J2704; J3010

== ENCOUNTER → 2021-08-06 | Outpatient (CLI) | payer OTHER ==
[~2021-08-06] MED LIST changes: +DOCU-148 PO; -DOCU-153 PO; -HYDROmorphone 2 MG/ML VIAL IVP PRN; -IV RINGERS,LACTATED 1000ML 1,000 ML IV SCH; -MORPHINE SULFATE 2 MG/ML VIAL. IVP PRN; -PROCHLORPERAZINE 10 MG/2 ML VIAL. IVP PRN; -fentaNYL PF VIAL 100 MCG/2 ML VIAL IVP PRN
== END ==
LOC: LAB 10:58
PROVIDERS: ATTEND Internal Medicine Pulmonary Disease
DX: U07.1 COVID-19 (principal); R53.81 Other malaise
CPT/HCPCS: U0003; U0005